=== PATIENT | male | born 1965 | race African-American/Black ===

== ENCOUNTER 2020-03-30 20:04 | Emergency (ER) | payer OTHER, SELFPAY ==
[2020-03-30 20:27] VITALS: BP 140/79; PULSE 73; RESP 16; TEMP 37.1; O2SAT 99; BMI 23.6
--- NOTE | 2020-03-30 21:10 | XR_ITS ---
EXAMINATION: XR CERVICAL SPINE XR SHOULDER, LEFT CLINICAL INFORMATION: Reticular symptoms. Question stenosis. COMPARISON: None TECHNIQUE: AP, lateral, and open-mouth views of the cervical spine. AP, Grashey, and scapular Y views of the left shoulder. FINDINGS: CERVICAL SPINE: Normal vertebral body alignment. The cervical lordosis is maintained. No acute fracture or subluxation. No loss of vertebral body height. Loss of intervertebral disc height with anterior endplate osteophytes at C6-C7. Bilateral facet arthropathy at C5-C6 and C6-C7. Normal atlantoaxial alignment. Unremarkable prevertebral soft tissues. LEFT SHOULDER: No acute fracture or dislocation. Acromioclavicular marginal osteophytes with small subacromial spurs. No glenohumeral joint space narrowing or marginal osteophytes. No osseous erosion. XR/XR shoulder LT min 2V IMPRESSION: CERVICAL SPINE: 1. Moderate degenerative disc disease at C6-C7. 2. Bilateral facet arthropathy at C5-C6 and C6-C7. LEFT SHOULDER: Mild acromioclavicular osteoarthritis with small subacromial spurs.
--- NOTE | 2020-03-30 21:10 | XR_ITS ---
EXAMINATION: XR CERVICAL SPINE XR SHOULDER, LEFT CLINICAL INFORMATION: Reticular symptoms. Question stenosis. COMPARISON: None TECHNIQUE: AP, lateral, and open-mouth views of the cervical spine. AP, Grashey, and scapular Y views of the left shoulder. FINDINGS: CERVICAL SPINE: Normal vertebral body alignment. The cervical lordosis is maintained. No acute fracture or subluxation. No loss of vertebral body height. Loss of intervertebral disc height with anterior endplate osteophytes at C6-C7. Bilateral facet arthropathy at C5-C6 and C6-C7. Normal atlantoaxial alignment. Unremarkable prevertebral soft tissues. LEFT SHOULDER: No acute fracture or dislocation. Acromioclavicular marginal osteophytes with small subacromial spurs. No glenohumeral joint space narrowing or marginal osteophytes. No osseous erosion. XR/XR cervical spine 3V IMPRESSION: CERVICAL SPINE: 1. Moderate degenerative disc disease at C6-C7. 2. Bilateral facet arthropathy at C5-C6 and C6-C7. LEFT SHOULDER: Mild acromioclavicular osteoarthritis with small subacromial spurs.
--- NOTE | 2020-03-30 21:10 | ECG_ITS ---
Test Reason : LEFT ARM PAIN Blood Pressure : / mmHG Vent. Rate : 058 BPM Atrial Rate : 058 BPM P-R Int : 204 ms QRS Dur : 096 ms QT Int : 408 ms P-R-T Axes : 021 053 045 degrees QTc Int : 400 ms Sinus bradycardia RSR' or QR pattern in V1 suggests right ventricular conduction delay Otherwise normal ECG When compared with ECG of 07-SEP-2018 21:44, No significant change was found Referred By: Jo-Ann Hampton Electronically Signed By:ISAIAH RODRIGUEZ MD
--- NOTE | 2020-03-30 21:13 | ED.EXTPRO ---
HPI - Extremity Problem General Chief complaint: Extremity Injury, Upper Stated complaint: left arm pain Time Seen by Provider: 03/30/20 21:10 Source: patient Mode of arrival: ambulatory Limitations: no limitations History of Present Illness HPI Narrative: This is a 54-year-old male who presents with 3-4 days of left shoulder discomfort on range of motion but denies any limitations. The discomfort in the left shoulder is associated with sensation paresthesias distal in all 5 fingertips without any compromise in motor function. Patient denies any trauma to the left shoulder but does state that he has known issues with his rotator cuff on both shoulders. He denies any history of diabetes or thyroid condition, shortness of breath, chest pain/palpitations, neck pain or spasm. Related Data Home Medications Medication Instructions Recorded Confirmed No Known Home Meds 02/29/20 02/29/20 Allergies Allergy/AdvReac Type Severity Reaction Status Date / Time No Known Allergies Allergy Verified 03/30/20 20:31 [No Known Allergies*] Review of Systems Review of Systems: Pertinent positives and negatives as stated in HPI and 10 point review of systems is otherwise negative. PMFSH Past Medical History Source: nursing notes reviewed Medical History Hemochromatosis carrier Hx of syphilis RCT (rotator cuff tear) Sciatica, right side Surgical History S/P foot surgery, left Family History Family History Father Diabetes Mother Diabetes Social History Social History Alcohol intake: current Alcohol intake frequency: a few times a week Alcohol type: beer Smoking Status: Current every day smoker Smoked in Last 30 Days: Yes Use of substances other than those prescribed or required for medical reasons: No Advance Directives: No Physical Exam Vital Signs: Vital Signs: Vital Signs Temp Pulse Resp BP Pulse Ox 03/30/20 20:27 98.7 F 73 16 140/79 H 99 Body Mass Index 23.6 VITAL SIGNS: Reviewed. GENERAL: Well developed, well nourished, in no acute distress. HEAD: Normocephalic/atraumatic, EYES: PERRLA, EOMI intact without pain, no nystagmus/pallor/icterus noted EARS: Ext canals without abnormality, TMs non-bulging and non-erythematous NOSE: Nares patent bilateral OROPHARYNX: no oral lesions noted, posterior pharynx clear and non-erythematous without noted tonsillar enlargement/erythema/exudates NECK: Supple, no adenopathy LUNGS: Normal breath sounds. No adventitious sounds or accessory muscle use. SpO2<99> CARDIOVASCULAR: Regular rate and rhythm without noted murmurs, no JVD or lower extremity edema. ABDOMEN: Soft, non-tender, non-distended with bowel sounds. No rigidity. No guarding. No palpable masses or hernias noted MUSCULOSKELETAL: No tenderness, deformities, or effusions noted on gross inspection. EXTREMITIES: No cyanosis, clubbing or edema; LEFT SHOULDER: There is full range of motion maintained, no evidence of deformity, no erythema, capillary refill less than 3 seconds, neurovascularly intact distal to the left shoulder, strength 5/5 on comparison with right SKIN: Inspection of the skin reveals no rashes, ulcerations, jaundice, pallor, or petechiae. NEUROLOGIC: Alert and oriented x 4. Strength and sensation to light touch were grossly intact x 4. Course Course Course Narrative: This is a 54-year-old male with history and clinical presentation consistent with possible left shoulder arthritis, but most likely radicular symptoms given numbness and tingling to all aspects of finger tips which makes isolate ulnar or radial radiculopathies unlikely. Patient does state that the sensation is exacerbated on forward flexion at the left shoulder. On review of all investigations there is no evidence of acute ischemia on EKG And on imaging there is evidence for arthritis as well as disc changes that have likely lead to patient's current presentation with numbness and tingling in the tips of the left fingers. All results and findings were discussed with the patient bedside and he was discharged to home in stable condition and strongly encouraged to follow-up with his primary care provider. IMAGING IMPRESSION: CERVICAL SPINE: 1. Moderate degenerative disc disease at C6-C7. 2. Bilateral facet arthropathy at C5-C6 and C6-C7. LEFT SHOULDER: Mild acromioclavicular osteoarthritis with small subacromial spurs. MDM - Extremity (Nontraumatic) ECG Data Attestation EKG: I personally reviewed and interpreted this ECG as follows: Prior ECG tracings: available for review ( 09/07/2018 no acute changes in comparison) Interpretation: normal sinus rhythm, HR - 58, no evidence of acute ischemia, TN prolonged at 204 (consistent with comparison ), QRS/QTC are within normal limits. Discharge Plan Discharge Clinical Impression: Cervical radiculopathy, Arthritis of shoulder region, left Patient Disposition: Home, Self-Care Instructions: Osteoarthritis (ED), Cervical Radiculopathy (ED) Additional Instructions: 1. Tylenol 1000 mg, orally, every 6 hours as needed for pain control please do not exceed 4000 mg within 24 hours. 2. ibuprofen 400 mg, orally with milk or food, every 6 hours as needed for additional pain control. 3. consider lidocaine patches, these are available [id number] at every [email or web address], apply to the area discomfort as directed on the outside packaging. 4. please follow-up with your primary care provider in the next 2 days to establish a follow-up appointment. The patient and/or family acknowledge understanding of results (as applicable), diagnosis, treatment plan, need for follow up, and symptoms that should prompt a return to the emergency room. Referrals: Physician,Unknown [Primary Care Provider] - 2 days (Shoulder discomfort and cervical radiculopathy)
[2020-03-30] MEDS: Ketorolac Tromethamine 15 MG/ML VIAL IM (21:40)
[2020-03-30] MEDS: Acetaminophen 325 MG TABLET 975 MG PO (21:40)
[2020-03-30 22:14] VITALS: BP 115/70; PULSE 62; RESP 18; TEMP 36.8; O2SAT 98
== END 2020-03-30 22:22 | disposition home or self-care (01) ==
PROVIDERS: Emergency Provider Student in an Organized Health Care Education/Training Program
DX: M54.12 Radiculopathy, cervical region (principal); M13.812 Other specified arthritis, left shoulder; M25.512 Pain in left shoulder; F17.200 Nicotine dependence, unspecified, uncomplicated; Z71.6 Tobacco abuse counseling
CPT/HCPCS: 72040; 73030; 93005; 96372; 99284; J1885

== ENCOUNTER 2020-05-03 11:56 | Outpatient (REF) | payer OTHER, SELFPAY | END 2020-05-03 11:57 | disposition home or self-care (01) | LOC: HO.LAB 11:56 | PROVIDERS: Visit Provider Internal Medicine | DX: Z20.828 Contact with and (suspected) exposure to other viral communicable diseases (principal) | CPT/HCPCS: C9803; U0003 ==

== ENCOUNTER 2020-09-07 01:41 | Emergency (ER) | payer OTHER, SELFPAY ==
[2020-09-07 01:45] VITALS: BP 126/85; PULSE 73; RESP 18; TEMP 36.8; O2SAT 98; BMI 25.8
--- NOTE | 2020-09-07 03:56 | ED_ITS ---
HPI - Eye Problem General Chief complaint: Eye Problems Stated complaint: EYE PROBLEMS Time Seen by Provider: 09/07/20 03:55 Source: patient Mode of arrival: ambulatory History of Present Illness HPI Narrative: 55-year-old male who who presents with complaints of bilateral eye watering, clear in nature, this started after he took a nap and he initially thought that it was due to the chicken and hot sauce that he had eaten. 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 He states that this happens sometimes and he had completely forgotten about it. Patient now states that he has had almost complete resolution of his blurred vision. He denies any eye trauma, or purulence drainage. Related Data Home Medications Medication Instructions Recorded Confirmed No Known Home Meds 02/29/20 02/29/20 Allergies Allergy/AdvReac Type Severity Reaction Status Date / Time No Known Allergies Allergy Verified 03/30/20 20:31 [No Known Allergies*] Review of Systems Review of Systems: Pertinent positives and negatives as stated in the HPI and 10 point review of systems is otherwise negative. PMFSH Past Medical History Medical History Hemochromatosis carrier Hx of syphilis RCT (rotator cuff tear) Sciatica, right side Surgical History S/P foot surgery, left Family History Family History Father Diabetes Mother Diabetes Social History Social History Alcohol intake: current Alcohol intake frequency: a few times a week Alcohol type: beer Smoking Status: Current every day smoker Advance Directives: No Advance Directives Information Provided: No Physical Exam Vital Signs: Vital Signs: Last Vital Signs Temp 98.2 F 09/07/20 01:45 Pulse 73 09/07/20 01:45 Resp 18 09/07/20 01:45 BP 126/85 09/07/20 01:45 Pulse Ox 98 09/07/20 01:45 Body Mass Index 25.8 VITAL SIGNS: Reviewed. GENERAL: Well developed, well nourished, in no acute distress. HEAD: Normocephalic/atraumatic, EYES: PERRLA, EOMI intact without pain, watery tearing noted from bilateral eyes without conjunctival injection. Visual acuity was obtained and noted to be 20/25 in bilateral eyes NOSE: Nares patent bilateral OROPHARYNX: no oral lesions noted, posterior pharynx clear NECK: Supple, no adenopathy LUNGS: Normal breath sounds. No adventitious sounds or accessory muscle use. SpO2<98> CARDIOVASCULAR: Regular rate and rhythm without noted murmurs ABDOMEN: Soft, non-tender, non-distended with bowel sounds. NEUROLOGIC: Alert and oriented x 4. Course Course Course Narrative: 55-year-old male with history and clinical presentation consistent with welding arc flash exposure and at time that I evaluated the patient in had almost complete resolution his symptoms. His visual acuity is noted to be consistent with his eye exam from 3 days ago where patient stated he was found to be 20/20 and each of his eyes at that time. Patient states the burning has improved and he was discharged home in stable condition with recommendations for [id number] eyedrops as well as the use of Tylenol and/or [id number] ibuprofen as needed for symptom relief. He was also enc ouraged to follow with an eye doctor for re-evaluation. Discharge Plan Discharge Clinical Impression: Exposure to welding light (arc), initial encounter Patient Disposition: Home, Self-Care Additional Instructions: 1. Tylenol 1000 mg, por v?a oral, cada 6 horas seg?n sea necesario para controlar el dolor. No exceda los 4000 mg en 24 horas. 2. Ibuprofeno 400 mg, por v?a oral con leche o alimentos, cada 6 horas seg?n sea necesario para controlar el dolor. 3. Recomendar gotas para los ojos de venta kenyatta que se deben aplicar en ambos ojos alis se indica en las instrucciones. 4. Recomiende no volver a soldar hasta que los s?ntomas oculares se hayan resuelto. 5. Helene un seguimiento con whelan proveedor de atenci?n primaria dentro de los pr?ximos 2-3 d?as para misha reevaluaci?n. No dude en volver al servicio de urgencias por cualquier empeoramiento dat de gisell s?ntomas. Referrals: Physician,Unknown [Primary Care Provider] - 2 days Interventions: ED Discharge Assessment Last Done: 09/07/20 05:31 Discharge Date/Time: 09/07/20 05:31 Print Language: [place]
== END 2020-09-07 05:31 | disposition home or self-care (01) ==
PROVIDERS: Emergency Provider Student in an Organized Health Care Education/Training Program
DX: H16.133 Photokeratitis, bilateral (principal); F17.200 Nicotine dependence, unspecified, uncomplicated
CPT/HCPCS: 99282; 99284

== ENCOUNTER 2021-04-10 08:56 | Outpatient (REF) | payer OTHER, SELFPAY ==
[2021-04-10 10:13] LABS: Hematocrit 45.5 % (42.0-52.0); Hemoglobin 14.6 g/dl (14.0-18.0); Mean Corpuscular HGB Conc 32.1 g/dl (31.0-36.0); Mean Corpuscular Hemoglobin 28.6 pg (27.0-33.0); Mean Platelet Volume 9.8 fL (9.4-12.4); Platelet Count 310 X10*3/uL (160-400); Red Blood Count 5.11 X10*6/uL (4.60-5.80); Red Cell Distribution Width 14.1 % (11.0-16.0)
[2021-04-10 10:22] LABS: Estimated Average Glucose 111 mg/dL; Hemoglobin A1c % 5.5 %
[2021-04-10 10:53] LABS: Alanine Aminotransferase 18 U/L (0-40); Alkaline Phosphatase 76 U/L (39-117); Anion Gap 10 (12-20); Aspartate Amino Transferase 19 U/L (5-37); Bilirubin Total 0.3 mg/dL (0.0-1.0); Blood Urea Nitrogen 17 mg/dL (9-16); Calcium 9.3 mg/dL (8.4-10.2); Carbon Dioxide 29 mmol/L (22-29); Chloride 105 mmol/L (96-108); Cholesterol 190 mg/dL; Estimated Glomerular Filt Rate > 60; Glucose Fasting 92 mg/dL (60-99); HDL Cholesterol 53 mg/dL; LDL Cholesterol Calculated 121 mg/dl; Potassium 5.2 mmol/L (3.3-5.1); Sodium 139 mmol/L (135-145); Total Protein 6.8 g/dL (6.5-8.0); Triglycerides 84 mg/dL
[2021-04-10 11:02] LABS: Prostate Specific Antigen Scr 1.21 ng/mL (<0.05-4.0); TSH reflex Free T4 1.13 uIU/mL (0.32-4.0)
== END 2021-04-10 08:57 | disposition home or self-care (01) ==
LOC: HO.LAB 08:56
PROVIDERS: PCP Physician Assistant; Visit Provider Physician Assistant
DX: Z13.29 Encounter for screening for other suspected endocrine disorder (principal); Z12.5 Encounter for screening for malignant neoplasm of prostate; Z13.1 Encounter for screening for diabetes mellitus; Z13.220 Encounter for screening for lipoid disorders
CPT/HCPCS: 36415; 80053; 80061; 83036; 84153; 84443; 85027

== ENCOUNTER 2021-04-22 10:11 | Outpatient (REF) | payer OTHER, SELFPAY ==
--- NOTE | ~2021-04-22 | US_ITS ---
EXAMINATION: US ABDOMEN COMPLETE CLINICAL INFORMATION: Left lower quadrant pain. COMPARISON: None TECHNIQUE: Real-time imaging of the abdominal viscera. FINDINGS: PANCREAS: Partially visualized body the pancreas is homogeneous in echotexture. Rest the pancreas is obscured by gas. ABDOMINAL AORTA: The proximal, mid, and distal segments are normal in caliber. INFERIOR VENA CAVA: Visualized portions are normal. LIVER: Normal. The liver is normal in size. The liver contour is normal. Parenchymal echogenicity is normal. No focal hepatic lesion. There is no intrahepatic biliary duct dilatation seen. GALLBLADDER: The gallbladder is physiologically distended without evidence of stones, sludge, wall thickening or pericholecystic fluid. There is a nonmobile small echogenic polyp. COMMON BILE DUCT: Normal in caliber measuring 0.34 cm in diameter. RIGHT KIDNEY: Normal. No hydronephrosis. No renal calculi or focal parenchymal lesions. The kidney measures 10.7 cm in maximum dimension. LEFT KIDNEY: Normal. No hydronephrosis. No renal calculi or focal parenchymal lesions. The kidney measures 9.6 cm in maximum dimension. SPLEEN: Normal. The spleen measures 7.5 cm in maximum dimension. FREE FLUID: None. US/US abdomen complete IMPRESSION: Small nonmobile echogenic polyp. Rest of the abdominal ultrasound is unremarkable.
== END 2021-04-22 10:12 | disposition home or self-care (01) ==
LOC: HO.HMGCX 10:11
PROVIDERS: PCP Physician Assistant; Visit Provider Physician Assistant
DX: R10.32 Left lower quadrant pain (principal)
CPT/HCPCS: 76700

== ENCOUNTER 2021-06-08 23:09 | Emergency (ER) | payer OTHER, SELFPAY ==
[2021-06-08 23:40] VITALS: BP 116/77; PULSE 79; RESP 16; TEMP 36.4; O2SAT 97; BMI 25.0
== END 2021-06-09 01:26 | disposition left against medical advice (07) ==
PROVIDERS: Emergency Provider Emergency Medicine; PCP Physician Assistant
DX: R51.9 Headache, unspecified (principal)
CPT/HCPCS: 99281; 99282

== ENCOUNTER 2021-06-19 09:34 | Outpatient (REF) | payer OTHER, SELFPAY ==
[2021-06-19 11:28] LABS: HBc Num1 0.05 S/CO (0.00-0.79); HBsAGNum1 0.26 S/CO (0.00-0.99); HIV AB/AG Nonreactive (Nonreactive); HIV Num 1 0.11 S/CO (0.00-0.99); Hepatitis B Core Antibody Nonreactive (Nonreactive); Hepatitis B Surface Antigen Negative (Negative); ~HepC Num1 0.09 S/CO (0.00-0.79); ~Hepatitis B Surface Antibody NONREACTIVE (Nonreactive); ~Hepatitis C Antibody Nonreactive (Nonreactive)
[2021-06-19 11:31] LABS: Anion Gap 12 (12-20); Blood Urea Nitrogen 14 mg/dL (9-16); Calcium 9.4 mg/dL (8.4-10.2); Carbon Dioxide 28 mmol/L (22-29); Chloride 108 mmol/L (96-108); Estimated Glomerular Filt Rate > 60; Glucose Random 99 mg/dL (60-115); Potassium 4.7 mmol/L (3.3-5.1); Sodium 143 mmol/L (135-145)
[2021-06-20 08:19] LABS: Syphilis Screen Reactive (Nonreactive)
[2021-06-24 17:01] LABS: Chlamydia Pneumoniae IgA <1:16 titer (<1:16); Chlamydia Pneumoniae IgG <1:64 titer (<1:64); Chlamydia Pneumoniae IgM <1:10 titer (<1:10); Chlamydia Psittaci IgA <1:16 titer (<1:16); Chlamydia Psittaci IgG <1:64 titer (<1:64); Chlamydia Psittaci IgM <1:10 titer (<1:10); Chlamydia Trachomatis IgA <1:16 titer (<1:16); Chlamydia Trachomatis IgG <1:64 titer (<1:64); Chlamydia Trachomatis IgM <1:10 titer (<1:10)
[2021-06-26 15:21] LABS: RPR Quantitative Non-Reactive (Nonreactive); T.Pallidum Particle Agg Test Reactive (Nonreactive)
== END 2021-06-19 09:35 | disposition home or self-care (01) ==
LOC: HO.LAB 09:34
PROVIDERS: PCP Physician Assistant; Visit Provider Physician Assistant
DX: Z01.84 Encounter for antibody response examination (principal); Z11.3 Encounter for screening for infections with a predominantly sexual mode of transmission; Z11.4 Encounter for screening for human immunodeficiency virus [HIV]; H53.8 Other visual disturbances
CPT/HCPCS: 36415; 80048; 86592; 86631; 86632; 86704; 86706; 86780; 86803; 87340; 87389

== ENCOUNTER 2021-06-24 16:00 | Emergency (ER) | payer OTHER, SELFPAY ==
--- NOTE | ~2021-06-24 | CT_ITS ---
EXAMINATION: CT ANGIOGRAM HEAD CT ANGIOGRAM NECK CT ORBITS WITH CONTRAST CLINICAL INFORMATION: Blurry vision. COMPARISON: None available. TECHNIQUE: Initial noncontrast mining plant operator imaging of the head and neck was performed. Test bolus sequences followed by intravenous administration 140 mL of Omnipaque 350. Helical imaging was performed in the axial plane from the aortic arch to the skull vertex. Postcontrast CT of the orbits was obtained. Delayed postcontrast imaging of the head was also performed. The data was processed at the environmental health technologist's workstation for generation of MIP sequences. Angled MIPs and volume rendered reformatted images were also generated at an offline 3D workstation. Stenoses are assessed in accordance with NASCET criteria unless otherwise indicated. This CT examination was performed using dose optimization techniques as appropriate, variously including the following: *Automated exposure control. *Adjustment of mA and/or kV according to patient size (this includes techniques or standardized protocols for targeted exams where dose is matched to indication/reason for exam; i.e. extremities or head). *Use of iterative reconstruction technique. DLP: 4535 mGy-cm FINDINGS: CT Head: There is no evidence of acute intracranial hemorrhage or edematous territorial infarction. There is no abnormal attenuation within the brain parenchyma. Kate-white matter differentiation is preserved. The ventricles are normal in size and configuration. No evidence for obstructive hydrocephalus. No abnormal mass effect or midline shift. The suprasellar cistern remains widely patent. No extra-axial fluid collections. No pathologic intra-axial enhancement. No acute soft tissue or osseous abnormalities. Moderate polypoid mucosal thickening of the paranasal sinuses. Moderate rightward nasal septal deviation. Trace bilateral mastoid effusions. Mild degenerative arthropathy of the temporomandibular joints. Multifocal periapical lucencies associated with the mandibular and maxillary teeth. CT Orbits: Normal appearance of the osseous orbits. No significant preseptal or retrobulbar edema. Normal appearance of the globes. Normal symmetric appearance of the extraocular musculature. No abnormalities of the intraconal or extraconal adipose tissue. Normal appearance of the optic nerve sheaths. Normal appearance of the lacrimal glands. No orbital fluid collections. No abnormalities of the orbital apices. No abnormal enhancement of the orbits. The premaxillary, retromaxillary, pterygopalatine fossa, temporal fossa, and parapharyngeal adipose tissue is maintained. No demonstrated abnormalities of the cavernous sinuses. No demonstrated vascular abnormalities. CT Neck: The thyroid gland and remaining cervical soft tissues are within normal limits. Advanced degenerative disc disease at C6-C7. Moderate degenerative disc disease at C3-C4. Associated disc-osteophyte complex formation. Facet and uncovertebral joint arthropathy leads to osseous encroachment on the neural foramina at C3-C4 and C6-C7. CT Upper Chest: Mild to moderate centrilobular emphysema. The visualized lung apices and upper mediastinum are within normal limits. Neck CTA: Aortic Arch: Normal contour and caliber. Classic 3 vessel branching pattern of the aortic arch. Great Vessel Origins: No significant stenosis of the branch origins. Right Common Carotid Artery: No focal stenosis or occlusion. Cervical Right Internal Carotid Artery: Normal opacification without focal stenosis or occlusion. Left Common Carotid Artery: No focal stenosis or occlusion. Cervical Left Internal Carotid Artery: Normal opacification without focal stenosis or occlusion. Cervical Right Vertebral Artery: Co-dominant. No focal stenosis or occlusion. Cervical Left Vertebral Artery: Co-dominant. No focal stenosis or occlusion. Brain CTA: Intracranial Internal Carotid Arteries: No focal stenosis or occlusion. Normal opacification of the bilateral ophthalmic arteries. Right Anterior Cerebral Artery: Normal A1 segment. Normal opacification of the distal JAMAAL segments. Left Anterior Cerebral Artery: Normal A1 segment. Normal opacification of the distal JAMAAL segments. Anterior Communicating Artery: Normal. Right Middle Cerebral Artery: Normal M1 segment of the MCA without focal stenosis or occlusion. Normal arborization of the distal segments. Left Middle Cerebral Artery: Normal M1 segment of the MCA without focal stenosis or occlusion. Normal arborization of the distal segments. Right Vertebral Artery: Normal V4 segment. The posterior inferior cerebellar artery is not well opacified; however, there is no CT evidence of acute occlusion. Left Vertebral Artery: Normal V4 segment. Normal opacification of the proximal segments of the posterior inferior cerebellar artery. Basilar Artery: Normal without focal stenosis or occlusion. Normal appearance of the proximal superior cerebellar arteries. Right Posterior Cerebral Artery: Normal P1 segment. Normal opacification of the distal WAREHOUSE SUPERVISOR segments. Left Posterior Cerebral Artery: Normal P1 segment. Normal opacification of the distal WAREHOUSE SUPERVISOR segments. Normal opacification of the superior sagittal, straight, transverse, and sigmoid sinuses. CT/CT angio head neck IMPRESSION: 1. No evidence of acute intracranial hemorrhage or edematous territorial infarction. 2. CTA of the head and neck without proximal occlusion or flow-limiting stenosis. 3. Normal CT evaluation of the orbits. 4. Moderate multilevel degenerative spinal arthropathy of the cervical spine. 5. Emphysema.
[2021-06-24 16:04] VITALS: BP 146/74; PULSE 86; RESP 18; TEMP 37.2; O2SAT 97; BMI 25.0
--- NOTE | 2021-06-24 18:41 | ED_ITS ---
HPI - General Adult General Chief complaint: Eye Problems Stated complaint: blurred vision Time Seen by Provider: 06/24/21 17:57 Source: patient Mode of arrival: ambulatory Limitations: no limitations History of Present Illness HPI narrative: 55-year-old male presents with an episode where both of his eyes went black and could not see for approximately 5 minutes. States that his vision returned and had blurriness to both eyes. Onset (ago): hour(s) (1:30 p.m.) Location: head and face Radiation: non-radiation Severity: severe and similar to prior episodes Relieving factors: none Exacerbating factors: none Associated symptoms: denies other symptoms Treatments prior to arrival: none Related Data Home Medications Medication Instructions Recorded Confirmed No Known Home Meds 02/29/20 06/10/21 Allergies Allergy/AdvReac Type Severity Reaction Status Date / Time No Known Allergies Allergy Verified 06/24/21 16:04 [No Known Allergies*] Review of Systems Verdana 4l Review of Systems: Verdana 4d Verdana 4d Constitutional: No Weight loss, No Fever, No Chills, No Night Sweats, No Fatigue, No Malaise ENT/Mouth: No Hearing loss, No Ear Pain, No Nasal Congestion, No Sinus Pain, No Hoarseness, No sore throat, No Rhinorrhea, No Swallowing DifficultyDifficulty Eyes: Transient loss of vision, No Eye Pain, No Swelling, No Redness, No Foreign Body, No Discharge, positive Vision Changes Cardiovascular: No Chest Pain, No SOB, No Dyspnea on Exertion, No Orthopnea, No Edema, No Palpitations Respiratory: No Cough, No Sputum, No Wheezing, No Smoke Exposure, No Dyspnea Gastrointestinal: No Nausea, No Vomiting, No Diarrhea, No Constipation, No abdominal Pain, No Hematochezia, No Melena Genitourinary: no irregular bleeding, No Dysuria, No Urinary Frequency, No He maturia, No Urinary Incontinence, No Urgency, No Flank Pain, No Urinary Flow Changes, No Hesitancy Musculoskeletal: No joint pain, No Myalgias, No Joint Swelling Skin: No Skin Lesions, No rash Neuro: No Weakness, No Numbness, No Paresthesias, No Loss of Consciousness, No Dizziness, No Headache Psych: No Anxiety/Panic, No Depression, No SI/HI/AH/VH, No Social Issues Heme/Lymph: No Bruising, No Bleeding,No Lymphadenopathy Endocrine: No Polyuria, No Polydipsia, No Temperature Intolerance Yes all other systems are reviewed and are negative [facility] Past Medical History Attestation statement: The following information was validated with the patient. Source: old records reviewed Medical History Hemochromatosis carrier Hx of syphilis RCT (rotator cuff tear) Sciatica, right side Surgical History S/P foot surgery, left Family History Family History Father Diabetes Colon cancer, Onset Age: 73 Mother Diabetes Social History Social History Housing: Apartment Alcohol intake: current Alcohol intake frequency: a few times a week Alcohol type: beer Patient Tobacco Use Status: Current everyday Tobacco user Tobacco use type: Cigarette Cigarette Packs Per Day: 1 e-Cigarette/Vaping Use: Never Used Second Hand Smoke Exposure: No Advance Directives: No Advance Directives Information Provided: No Current occupational status: unemployed and disabled Physical Exam Verdana 4l Vital Signs: Verdana 4d Verdana 4d Vital Signs: Verdana 4d Verdana 4Bd Last Vital Signs Verdana 4d Tanbark Peeler New 4d Tanbark Peeler New 4d Temp 98.9 F 06/24/21 16:04 Tanbark Peeler New 4d Pulse 77 06/24/21 19:03 Tanbark Peeler NewNew 4d Resp 16 06/24/21 19:03 BP 127/65 06/24/21 19:03 Pulse Ox 99 06/24/21 19:03 BMI result Body Mass Index 25.0 Appearance: Alert. Oriented X3. No acute distress. Head: Normal external exam. Normocephalic. Atraumatic. No Gaffney signs noted. No raccoon eyes noted Eyes: PERRLA. EOMI. Conjunctiva and sclera normal. Eyelids normal. No nyst agmus. No scleral icterus. Funduscopic exam is normal. ENT: TM's Normal. Pharynx normal. Uvula midline. Moist mucous membranes. No trismus noted. No drooling noted. No muffled voice noted. Neck: Normal inspection. Neck supple. No adenopathy. No meningeal signs. No neck mass noted. CVS: Normal heart rate and rhythm. Heart sound normal. No murmurs noted. Pulses equal to all extremities. Respiratory: No respiratory distress. Painless inspiration. Breath sounds normal. No wheezes/rales/rhonchi noted. Chest nontender. No accessory muscle usage noted or decreased air movement noted. Abdomen: Soft and nontender. Bowel sounds normal in all 4 quadrants. No distention noted. No organomegaly noted. No visible injury noted. Back: No CVA tenderness. Full range of motion noted. Skin: Skin warm and dry. Normal skin color. Normal skin turgor. No rashes/lesions/lacerations noted. Extremities: No lower extremity edema. Extremities exhibit normal range of motion. Extremities nontender. Neuro: cranial nerves 2-12 intact, no focal neural deficits, strength 5/5 to all extremities, No motor deficit. No sensory deficit. NIH Stroke Scale Internal: Initial- Upon Arrival Level of Consciousness: Alert Level of Consciousness Questions: Answers both questions correctly Level of Consciousness Commands: Performs both tasks correctly Best Gaze: Normal Visual: No visual loss Facial Palsy: Normal Motor Arm (Right): No drift Motor Arm (Left): No drift Motor Leg (Right): No drift Motor Leg (Left): No drift Limb Ataxia: Absent Sensory: Normal Best Language: No aphasia Dysarthia: Normal Extinction and Inattention: No abnormality Score: 0 Course Course Course Narrative: 55-year-old male presents with transient loss of vision that occurred around 1:30 p.m. today. Once his vision gained approximately 5 minutes after loss of vision, he noted to have bilateral blurriness. Does not report any other symptoms with this transient loss of vision. States that this has happened before approximately 1 month ago and last week. He did present to the emergency department last week however the wait time was too long for him to wait. Will order labs, EKG, CTA of head neck. NIH stroke scale is 0. While stroke is considered based on presentation, he has had similar circumstances over the past month. 7:30 p.m. lab values are negative. Glucose elevated at 121. ESR and CRP are negative. Troponin is negative. EKG is consistent with prior EKGs no indication of ST elevation or depression. 9:50 p.m. CTA negative. Does show some spinal degeneration and emphysema. Patient does have primary care physician appointment tomorrow. Will refer to luncheonette operator. Patient verbalized understanding of and agrees to plan of care to discharge home Medical Decision Making MDM Narrative Medical decision making narrative: CVA, retinal detachment, hypertension, diabetes Medical Records Medical records reviewed: Yes I reviewed the patient's medical records. Lab Data Lab results reviewed: Yes I reviewed the patient's lab results. Result diagrams: 06/24/21 18:55 06/24/21 18:55 Labs: Lab Results 06/24/21 06/24/21 06/24/21 Range/Units 18:55 18:55 18:55 WBC 8.8 (4.8-10.8) X10*3/uL RBC 4.91 (4.60-5.80) X10*6/uL Hgb 14.4 (14.0-18.0) g/dl Hct 43.3 (42.0-52.0) % MCV 88.2 (80.0-98.0) fL MCH 29.3 (27.0-33.0) pg MCHC 33.3 (31.0-36.0) g/dl RDW 14.0 (11.0-16.0) % Plt Count 322 (160-400) X10*3/uL MPV 9.2 L (9.4-12.4) fL Immature Gran % (Auto) 0.5 H (0.0-0.4) % Neut % (Auto) 69.2 (45-73) % Lymph % (Auto) 22.6 (20-40) % Cheyenne % (Auto) 6.0 (2-11) % Eos % (Auto) 1.4 (0-4) % Baso % (Auto) 0.3 (0-2) % Lymph # (Auto) 2.0 (1.2-4.9) X10*3/uL [place] # (Auto) 0.5 (0.1-1.2) X10*3/uL Eos # (Auto) 0.1 (0.0-0.4) X10*3/uL Baso # (Auto) 0.0 (0.0-0.2) X10*3/uL Abs Immat Gran (auto) 0.04 H (0.00-0.03) X10*3/uL Absolute Neuts (auto) 6.1 (2.0-8.3) x10*3/uL Absolute Nucleated RBC 0.000 (0.0-0.012) X10*3/uL Nucleated RBC % (auto) 0.0 (0.0-0.2) /100WBC ESR 12 (0-15) MM/HR PT (9.9-13.0) SEC INR (0.9-1.1) APTT (24.1-38.0) SEC Sodium 143 (135-145) mmol/L Potassium 3.7 D (3.3-5.1) mmol/L Chloride 104 (96-108) mmol/L Carbon Dioxide 30 H (22-29) mmol/L Anion Gap 13 (12-20) BUN 14 (9-16) mg/dL Creatinine 0.95 (0.5-1.4) mg/dL Estim Creat Clear Calc 90.7 Estimated GFR > 60 Random Glucose 121 H (60-115) mg/dL Calcium 9.7 (8.4-10.2) mg/dL Magnesium 2.5 (1.6-2.6) mg/dL Total Bilirubin 0.4 (0.0-1.0) mg/dL Direct Bilirubin 0.2 (0.0-0.5) mg/dL AST 18 (5-37) U/L ALT 16 (0-40) U/L Alkaline Phosphatase 74 (39-117) U/L Troponin I High Sens (<3.5-35.0) ng/L C-Reactive Protein 0.09 (< or = 0.50) mg/dL Total Protein 7.4 (6.5-8.0) g/dL Albumin 4.1 (3.5-5.0) g/dL Lipase 21 (8-78) U/L 06/24/21 06/24/21 Range/Units 18:55 18:55 WBC (4.8-10.8) X10*3/uL RBC (4.60-5.80) X10*6/uL Hgb (14.0-18.0) g/dl Hct (42.0-52.0) % MCV (80.0-98.0) fL MCH (27.0-33.0) pg MCHC (31.0-36.0) g/dl RDW (11.0-16.0) % Plt Count (160-400) X10*3/uL MPV (9.4-12.4) fL Immature Gran % (Auto) (0.0-0.4) % Neut % (Auto) (45-73) % Lymph % (Auto) (20-40) % [place] % (Auto) (2-11) % Eos % (Auto) (0-4) % Baso % (Auto) (0-2) % Lymph # (Auto) (1.2-4.9) X10*3/uL [place] # (Auto) (0.1-1.2) X10*3/uL Eos # (Auto) (0.0-0.4) X10*3/uL Baso # (Auto) (0.0-0.2) X10*3/uL Abs Immat Gran (auto) (0.00-0.03) X10*3/uL Absolute Neuts (auto) (2.0-8.3) x10*3/uL Absolute Nucleated RBC (0.0-0.012) X10*3/uL Nucleated RBC % (auto) (0.0-0.2) /100WBC ESR (0-15) MM/HR PT 11.6 (9.9-13.0) SEC INR 1.0 (0.9-1.1) APTT 37.5 (24.1-38.0) SEC Sodium (135-145) mmol/L Potassium (3.3-5.1) mmol/L Chloride (96-108) mmol/L Carbon Dioxide (22-29) mmol/L Anion Gap (12-20) BUN (9-16) mg/dL Creatinine (0.5-1.4) mg/dL Estim Creat Clear Calc Estimated GFR Random Glucose (60-115) mg/dL Calcium (8.4-10.2) mg/dL Magnesium (1.6-2.6) mg/dL Total Bilirubin (0.0-1.0) mg/dL Direct Bilirubin (0.0-0.5) mg/dL AST (5-37) U/L ALT (0-40) U/L Alkaline Phosphatase (39-117) U/L Troponin I High Sens < 3.5 (<3.5-35.0) ng/L C-Reactive Protein (< or = 0.50) mg/dL Total Protein (6.5-8.0) g/dL Albumin (3.5-5.0) g/dL Lipase (8-78) U/L Imaging Data CTA head neck: Attestation: I personally reviewed and interpreted this imaging study as follows: Radiologist's impression: EXAMINATION: CT ANGIOGRAM HEAD CT ANGIOGRAM NECK CT ORBITS WITH CONTRAST CLINICAL INFORMATION: Blurry vision. COMPARISON: None available. TECHNIQUE: Initial noncontrast bladder trimmer imaging of the head and neck was performed. Test bolus sequences followed by intravenous administration 140 mL of Omnipaque 350. Helical imaging was performed in the axial plane from the aortic arch to the skull vertex. Postcontrast CT of the orbits was obtained. Delayed postcontrast imaging of the head was also performed. The data was processed at the medical laboratory technologist's workstation for generation of MIP sequences. Angled MIPs and volume rendered reformatted images were also generated at an offline 3D workstation. Stenoses are assessed in accordance with NASCET criteria unless otherwise indicated. This CT examination was performed using dose optimization techniques as appropriate, variously including the following: *Automated exposure control. *Adjustment of mA and/or kV according to patient size (this includes techniques or standardized protocols for targeted exams where dose is matched to indication/reason for exam; i.e. extremities or head). *Use of iterative reconstruction technique. DLP: 4535 mGy-cm FINDINGS: CT Head: There is no evidence of acute intracranial hemorrhage or edematous territorial infarction. There is no abnormal attenuation within the brain parenchyma. Kate-white matter differentiation is preserved. The ventricles are normal in size and configuration. No evidence for obstructive hydrocephalus. No abnormal mass effect or midline shift. The suprasellar cistern remains widely patent. No extra-axial fluid collections. No pathologic intra-axial enhancement. No acute soft tissue or osseous abnormalities. Moderate polypoid mucosal thickening of the paranasal sinuses. Moderate rightward nasal septal deviation. Trace bilateral mastoid effusions. Mild degenerative arthropathy of the temporomandibular joints. Multifocal periapical lucencies associated with the mandibular and maxillary teeth. CT Orbits: Normal appearance of the osseous orbits. No significant preseptal or retrobulbar edema. Normal appearance of the globes. Normal symmetric appearance of the extraocular musculature. No abnormalities of the intraconal or extraconal adipose tissue. Normal appearance of the optic nerve sheaths. Normal appearance of the lacrimal glands. No orbital fluid collections. No abnormalities of the orbital apices. No abnormal enhancement of the orbits. The premaxillary, retromaxillary, pterygopalatine fossa, temporal fossa, and parapharyngeal adipose tissue is maintained. No demonstrated abnormalities of the cavernous sinuses. No demonstrated vascular abnormalities. CT Neck: The thyroid gland and remaining cervical soft tissues are within normal limits. Advanced degenerative disc disease at C6-C7. Moderate degenerative disc disease at C3-C4. Associated disc-osteophyte complex formation. Facet and uncovertebral joint arthropathy leads to osseous encroachment on the neural foramina at C3-C4 and C6-C7. CT Upper Chest: Mild to moderate centrilobular emphysema. The visualized lung apices and upper mediastinum are within normal limits. Neck CTA: Aortic Arch: Normal contour and caliber. Classic 3 vessel branching pattern of the aortic arch. Great Vessel Origins: No significant stenosis of the branch origins. Right Common Carotid Artery: No focal stenosis or occlusion. Cervical Right Internal Carotid Artery: Normal opacification without focal stenosis or occlusion. Left Common Carotid Artery: No focal stenosis or occlusion. Cervical Left Internal Carotid Artery: Normal opacification without focal stenosis or occlusion. Cervical Right Vertebral Artery: Co-dominant. No focal stenosis or occlusion. Cervical Left Vertebral Artery: Co-dominant. No focal stenosis or occlusion. Brain CTA: Intracranial Internal Carotid Arteries: No focal stenosis or occlusion. Normal opacification of the bilateral ophthalmic arteries. Right Anterior Cerebral Artery: Normal A1 segment. Normal opacification of the distal JAMAAL segments. Left Anterior Cerebral Artery: Normal A1 segment. Normal opacification of the distal JAMAAL segments. Anterior Communicating Artery: Normal. Right Middle Cerebral Artery: Normal M1 segment of the MCA without focal stenosis or occlusion. Normal arborization of the distal segments. Left Middle Cerebral Artery: Normal M1 segment of the MCA without focal stenosis or occlusion. Normal arborization of the distal segments. Right Vertebral Artery: Normal V4 segment. The posterior inferior cerebellar artery is not well opacified; however, there is no CT evidence of acute occlusion. Left Vertebral Artery: Normal V4 segment. Normal opacification of the proximal segments of the posterior inferior cerebellar artery. Basilar Artery: Normal without focal stenosis or occlusion. Normal appearance of the proximal superior cerebellar arteries. Right Posterior Cerebral Artery: Normal P1 segment. Normal opacification of the distal SUPERVISOR BLUEPRINTING AND PHOTOCOPY segments. Left Posterior Cerebral Artery: Normal P1 segment. Normal opacification of the distal SUPERVISOR BLUEPRINTING AND PHOTOCOPY segments. Normal opacification of the superior sagittal, straight, transverse, and sigmoid sinuses. CT/CT angio head neck IMPRESSION: 1. No evidence of acute intracranial hemorrhage or edematous territorial infarction. 2. CTA of the head and neck without proximal occlusion or flow-limiting stenosis. 3. Normal CT evaluation of the orbits. 4. Moderate multilevel degenerative spinal arthropathy of the cervical spine. 5. Emphysema. ECG Data Attestation: I personally reviewed and interpreted this ECG as follows: Prior ECG tracings: available for review Interpretation: Vent. rate 76 BPM LA interval 230 ms QRS duration 108 ms QT/QTc 384/432 ms P-R-T axes 64 55 42 Sinus rhythm with 1st degree A-V block Otherwise normal ECG When compared with ECG of 30-MAR-2020 20:48, No significant change was found 24-JUN-2021 18:58:15 Discharge Plan Discharge Clinical Impression: Changes in vision Patient Disposition: Home, Self-Care Instructions: Blurred Vision (ED) Additional Instructions: You were evaluated for transient vision loss without any other symptoms. CTA of head and neck with orbit is negative for acute findings requiring intervention. CTA does indicate emphysema in the lungs. Please follow-up with your primary care physician as scheduled tomorrow. Follow-up with Ophthalmology. Your lab values were within normal limits with the exception of your glucose which was elevated 121. Please follow-up with primary care for A1c. Your troponin was negative and EKG did not show any changes indicating ST elevation or depression. Thank you for choosing this emergency department for evaluation. Please fol low-up with primary care physician as needed. Return to the emergency department for any new, concerning, or worsening symptoms. Prescriptions: No Action No Known Home Meds RF: 0 Referrals: Urban Coffey [Physician] - 2 days (Transient vision changes)
--- NOTE | 2021-06-24 18:42 | ECG_ITS ---
Test Reason : Blurred vision Blood Pressure : / mmHG Vent. Rate : 076 BPM Atrial Rate : 076 BPM P-R Int : 230 ms QRS Dur : 108 ms QT Int : 384 ms P-R-T Axes : 064 055 042 degrees QTc Int : 432 ms Sinus rhythm with 1st degree A-V block Otherwise normal ECG When compared with ECG of 30-MAR-2020 20:48, No significant change was found Referred By: Nati Miranda Electronically Signed By:VICKY CRAIG MD
--- NOTE | 2021-06-24 19:01 | PC.NURSE ---
IV established, labs obtained. senior engineering tech at bedside for EKG. VSS. Continue to monitor.
[2021-06-24 19:03] VITALS: BP 127/65; PULSE 77; RESP 16; O2SAT 99
[2021-06-24 19:12] LABS: MANUAL DIFF FLAG NO
[2021-06-24 19:19] LABS: Basophils Percent Auto 0.3 % (0-2); Eosinophils Absolute Auto 0.1 X10*3/uL (0.0-0.4); Eosinophils Percent Auto 1.4 % (0-4); Hematocrit 43.3 % (42.0-52.0); Hemoglobin 14.4 g/dl (14.0-18.0); Imm Gran Abs Auto 0.04 X10*3/uL (0.00-0.03); Imm Gran Pct Auto 0.5 % (0.0-0.4); Lymphocytes Percent Auto 22.6 % (20-40); Mean Corpuscular HGB Conc 33.3 g/dl (31.0-36.0); Mean Corpuscular Hemoglobin 29.3 pg (27.0-33.0); Mean Corpuscular Volume 88.2 fL (80.0-98.0); Mean Platelet Volume 9.2 fL (9.4-12.4); Monocytes Absolute Auto 0.5 X10*3/uL (0.1-1.2); Neutrophils Absolute Auto 6.1 x10*3/uL (2.0-8.3); Neutrophils Percent Auto 69.2 % (45-73); Platelet Count 322 X10*3/uL (160-400); Red Blood Count 4.91 X10*6/uL (4.60-5.80); White Blood Count 8.8 X10*3/uL (4.8-10.8)
[2021-06-24 19:27] LABS: Prothrombin Time 11.6 SEC (9.9-13.0)
[2021-06-24 19:29] LABS: Partial Thromboplastin Time 37.5 SEC (24.1-38.0)
[2021-06-24 19:30] LABS: Alanine Aminotransferase 16 U/L (0-40); Albumin Level 4.1 g/dL (3.5-5.0); Alkaline Phosphatase 74 U/L (39-117); Anion Gap 13 (12-20); Aspartate Amino Transferase 18 U/L (5-37); Bilirubin Direct 0.2 mg/dL (0.0-0.5); Bilirubin Total 0.4 mg/dL (0.0-1.0); Blood Urea Nitrogen 14 mg/dL (9-16); C Reactive Protein 0.09 mg/dL (< or = 0.50); Calcium 9.7 mg/dL (8.4-10.2); Carbon Dioxide 30 mmol/L (22-29); Chloride 104 mmol/L (96-108); Creatinine Clr Calc Pharmacy 90.7; Estimated Glomerular Filt Rate > 60; Glucose Random 121 mg/dL (60-115); Lipase 21 U/L (8-78); Magnesium 2.5 mg/dL (1.6-2.6); Potassium 3.7 mmol/L (3.3-5.1); Sodium 143 mmol/L (135-145); Total Protein 7.4 g/dL (6.5-8.0)
[2021-06-24 19:32] LABS: Troponin-I High Sensitivity < 3.5 ng/L (<3.5-35.0)
[2021-06-24 19:57] LABS: Erythrocyte Sedimentation Rate 12 MM/HR (0-15)
--- NOTE | 2021-06-24 20:24 | PC.NURSE ---
Pt off to CT on hospital bed.
--- NOTE | 2021-06-24 21:26 | PC.NURSE ---
Pt requesting food/drink, per FACILITIES MANAGEMENT EXECUTIVE to wait until CT results are back.
[2021-06-24 21:58] VITALS: BP 110/63; PULSE 63; RESP 16; O2SAT 100
== END 2021-06-24 22:15 | disposition home or self-care (01) ==
PROVIDERS: Nurse Practitioner Family; Emergency Provider Emergency Medicine; PCP Physician Assistant
DX: H53.8 Other visual disturbances (principal); R29.700 NIHSS score 0; F17.210 Nicotine dependence, cigarettes, uncomplicated; Z71.6 Tobacco abuse counseling
CPT/HCPCS: 36415; 70496; 70498; 80048; 80076; 83690; 83735; 84484; 85025; 85610; 85652; 85730; 86140; 93005; 99284

== ENCOUNTER → 2021-08-13 12:29 | Outpatient (REF) | payer OTHER, SELFPAY ==
--- NOTE | 2021-08-13 12:32 | CA_ITS ---
Transthoracic Echocardiogram Patient (Last, First, Middle): Raciel Castillo L Gender: Male Date of : 1965 Age: 56 Procedure Date: 08/13/2021 Procedure Type: Transthoracic Echocardiogram Location: OP Height: 177.8 cm Weight: 78.93 kg BSA: 1.97 m2 Heart Rate: bpm BP: 120 / 78 mmHg Water Rights Specialist: YR/TO Referring MD: Virgilio Ricks PA-C Symptoms: H53.133 - Sudden visual loss, bilateral Study Quality: Good ECG Rhythm: Sinus Conclusions: - The left ventricular systolic function is normal. The calculated ejection fraction is 61% by biplane method. - No obvious valvular pathology seen on this study. Findings Left Ventricle Normal left ventricular cavity size. There is normal left ventricular wall thickness. The left ventricular systolic function is normal. The calculated ejection fraction is 61% by biplane method. There is no evidence of regional wall motion abnormalities. Diastolic function is normal for age. LV peak global longitudinal strain -19.2% (normal). Right Ventricle Normal right ventricular cavity size and systolic function. Atria Both atria are normal in size. Aortic Valve There is a normal trileaflet aortic valve. There is no aortic valve stenosis. There is no aortic valve regurgitation. Mitral Valve The mitral valve appears normal. There is trace mitral valve regurgitation. There is no mitral valve stenosis. Pulmonic Valve The pulmonic valve was not well visualized. Tricuspid Valve Normal tricuspid valve structure. There is trace tricuspid valve regurgitation. The pulmonary artery systolic pressure is normal. Great Vessels The aortic annulus, sinuses of valsalva, and asc aorta are normal in size. Venous The inferior vena cava is normal in size and collapses greater than 50% with inspiration. Pericardium/Pleural There is no evidence of pericardial effusion. Prior Study Comparison No prior study available for comparison. Recommendations, Care & Conclusions No obvious valvular pathology seen on this study. Measurements 2D Linear Measurements IVSd: 1.08 0.6-0.9/0.6-1.0 cm LVIDd: 4.44 3.9-5.3/4.2-5.9 cm LVIDd Index: 2.25 2.4-3.2/2.2-3.1 cm/m2 LVIDs: 3.05 2.0-3.6 cm LVPWd: 1.06 0.7-1.1 cm LA Diam: 3.50 2.7-3.8/3.0-4.0 cm LAIDs Index: 1.78 1.5-2.3 cm/m2 LV Mass: 205.26 67-162/88-224 g LV Mass Index: 104.19 43-95/49-115 g/m2 LVOT Diam: 2.30 3.0+(-)1.3 cm 2D Systolic Function EF 4C: 57.80 >55% EF 2C: 64.80 >55% EF BiP: 60.90 >55% Mitral Valve MV Pk E: 0.72 MV PK A: 0.46 MV Decel Time: 241.00 E/A: 1.60 E'Lateral: 9.90 E'Medial: 8.59 E/E' Med: 8.40 E/E' Lat: 7.30 PHT: 71.00 MVA PHT: 3.10 Decel Don[place]han: 3.01 Aortic Valve AoV Pk Macario: 1.23 AoV Mn Macario: 0.80 AoV VTI: 0.24 AoV Pk Grad: 6.00 Aov Mn Grad: 3.00 MERY Cont.VTI: 3.42 LVOT LVOT Pk Macario: 0.88 LVOT Mn Macario: 0.59 LVOT VTI: 0.20 LVOT Pk Grad: 3.00 LVOT Mn Grad: 2.00 LVOT Diam: 2.30 LVOT Area: 4.15 Diastolic Function MV Pk E: 0.72 MV Pk A: 0.46 E/A: 1.60 E'Medial: 8.59 E/E' Med: 8.40 E' Laterial: 9.90 E/E' Lat: 7.30 Right Ventricle TAPSE (mm): 19.50 TVS' Macario: 14.30 Tricuspid Valve RA Press: 3.00 Great Vessels Aorta Sinus of Valsalva: 3.12 2.0-3.[address] Ridge: 2.88 1.7-3.4 cm Ao Asc: 3.20 2.1-3.4 cm Ao Arch: 2.80 Updated in Other Vendor System with Status of Final Tejinder Peterson MD electronically signed on 08/15/2021 1:28:30 PM with status of Final
== END ==
LOC: HO.CARD 12:29
PROVIDERS: PCP Physician Assistant; Visit Provider Physician Assistant
DX: H53.133 Sudden visual loss, bilateral (principal)
CPT/HCPCS: 93306

== ENCOUNTER 2022-10-23 13:57 | Outpatient (REF) | payer OTHER, SELFPAY ==
--- NOTE | ~2022-10-23 | CT_ITS ---
EXAMINATION: CT CHEST SCREENING CLINICAL INFORMATION: Nicotine dependence. COMPARISON: None available. TECHNIQUE: Multidetector volumetric CT imaging of the chest is performed without contrast using low dose technique. Additional 2D coronal and sagittal reformatted images and axial 3D maximum intensity projection (MIP) images are generated on the CT workstation. This CT examination was performed using dose optimization techniques as appropriate, variously including the following: *Automated exposure control *Adjustment of mA and/or kV according to patient size (this includes techniques or standardized protocols for targeted exams where dose is matched to indication/reason for exam; i.e. extremities or head) *Use of iterative reconstruction technique DLP: 51 mGy-cm FINDINGS: LUNGS: The lungs are well expanded and clear of acute pneumonic process. There is a 3 mm nodule left major fissure axial image 262/6, 3 mm nodule left lower lobe axial image 348/6, 2 mm calcified nodule left lower lobe axial image 255/6. No acute pneumonic consolidation, mass or ground-glass density seen. There is plate-like atelectasis left lung base. MEDIASTINUM: The thyroid lobes are symmetric and normal. The central trachea and the bronchi are widely patent. Heart size and the great vessels are normal caliber. No abnormal-sized mediastinal lymph node seen. There is no pericardial effusion. CORONARY ARTERY CALCIFICATION: None visualized on this study. PLEURA: There is no pleural effusion. No pleural mass or thickening. AXILLA: No lymphadenopathy. UPPER ABDOMEN: Visualized liver, spleen, pancreas and bilateral adrenal glands are unremarkable. OSSEOUS STRUCTURES: No aggressive lytic or sclerotic process seen. CT/CT lung screening IMPRESSION: 1. Small pulmonary nodules. ASSESSMENT: Lung-RADS category 2: Benign RECOMMENDATION: Low-dose annual CT chest
--- NOTE | ~2022-10-23 | XR_ITS ---
EXAMINATION: XR SHOULDER, LEFT CLINICAL INFORMATION: Left shoulder pain. COMPARISON: None available. TECHNIQUE: AP external rotation, Grashey, scapular Y, and axillary views of the left shoulder. FINDINGS: The bones and soft tissues appear unremarkable. No fracture appreciated. Glenohumeral and acromioclavicular alignment is anatomic with normal joint space. No abnormal soft tissue calcifications. XR/XR shoulder LT min 2V IMPRESSION: Normal plain film examination of the left shoulder.
== END 2022-10-23 13:58 | disposition home or self-care (01) ==
LOC: HO.CT 13:57
PROVIDERS: PCP Physician Assistant; Visit Provider Physician Assistant Medical
DX: Z12.2 Encounter for screening for malignant neoplasm of respiratory organs (principal); F17.210 Nicotine dependence, cigarettes, uncomplicated; M25.512 Pain in left shoulder
CPT/HCPCS: 71271; 73030; G0296

== ENCOUNTER 2023-01-07 11:08 | Outpatient (AMB) | payer OTHER, SELFPAY ==
[2023-01-07 11:15] VITALS: BP 122/74; PULSE 63; BMI 25.1
--- NOTE | 2023-01-07 11:15 | A.OFFVIS_ITS ---
Intake Vital Signs 01/07/23 11:15 Height 5 ft 10 in Weight 175 lb 0.752 oz BMI 25.1 BP 122/74 Blood Pressure Location Lt brachial Position Sitting Pulse 63 Intake Visit Reasons: Colonoscopy Screening Intake Note: Raciel presents in office as a new.patient for a colonoscopy screening PT CC: pt reports having abdominal pain every morning, 2nd colo pt denies any other GI Issues Car Wash Attendant Automatic Required: No Accompanied by: Self / Same As Patient Allergies No Known Allergies [No Known Allergies*] Allergy (Verified 01/07/23 11:15) Medication List - Last Reconciled 01/07/23 by Josette Cantu PA-C No Known Home Meds HPI HPI Comments History of Present Illness Details A 57 y/o male history of colon polyps 03/17 adenoma- Graeme-low due for colonoscopy Bowels are normal Appetite is good. He has no cardiac or respiratory No nausea, vomiting, hematemesis, hematochezia fever chills PFSH Medical History Hemochromatosis carrier Hx of syphilis Nicotine dependence, cigarettes, uncomplicated RCT (rotator cuff tear) Sciatica, right side Surgical History History of axillary surgery History of colonoscopy History of foot surgery History of repair of right rotator cuff Family History Father Diabetes Colon cancer, Onset Age: 73 Mother Diabetes Brother Diabetes Social History Housing: Apartment Alcohol intake: current Alcohol intake frequency: a few times a week Alcohol type: beer Patient Tobacco Use Status: Current everyday Tobacco user Tobacco use type: Cigarette Cigarette Packs Per Day: 1 Years Smoked: (onset 16yo, 1ppd x 41yrs, 40pyh) e-Cigarette/Vaping Use: Never Used Second Hand Smoke Exposure: Yes service: No Current occupational status: unemployed and disabled Cognitive needs: No Hearing needs: No Vision needs: Yes (GLASSES) Review of Systems Const All systems reviewed & are unremarkable except as noted in HPI and below Card Denies chest pain and Denies dyspnea Resp Denies cough and Denies dyspnea GI Denies abdominal pain and Denies change in bowel habits Physical Exam Vital Signs: Last Vital Signs Pulse 63 01/07/23 11:15 BP 122/74 01/07/23 11:15 BMI result Body Mass Index 25.1 Const General: cooperative, healthy appearing, comfortable and no acute distress Orientation/consciousness: patient oriented x3 Limitations: no limitations Eyes Sclerae: sclerae normal Resp Effort & Inspection: normal respiratory effort and able to speak in complete sentences Auscultation: clear to auscultation bilaterally, no rales, no rhonchi and no wheezes Cardio Rate: regular rate Rhythm: regular rhythm Heart sounds: S1 normal heart sound present and S2 normal heart sound present GI Palpation (GI): Soft to palpation and nontender Auscultation: normal bowel sounds Skin General skin exam: no rashes or lesions noted Neuro General: patient oriented x3 Extrem General: Yes full ROM Psych Appearance: grossly normal Mental Status: mental status grossly normal Speech and movement: Normal speech and movement present Affect: normal affect Attitude: cooperative Thought process: Normal thought process present Thought content: Normal thought content present Insight: Good insight present (Psych) Judgement: Good judgement present (Psych) Assessment & Plan Assessment & Plan (1) Adenomatous colon polyp: Code(s): D12.6 - Benign neoplasm of colon, unspecified Plan polyp surveillance colonoscopy MiraLax Gatorade prep Orders: Orders Colonoscopy - GI Use Only 01/07/23 D12.6 - Benign neoplasm of colon, unspecified Medications: New bisacodyl (Dulcolax (bisacodyl)) Take 4 tablets by mouth at 12:00pm the day before your procedure. 20 mg (4 x 5 mg) PO ONCE 1 day 4 tabs 0RF colonoscopy prep Z12.11 - Encounter for screening for malignant neoplasm of colon polyethylene glycol 3350 (Miralax) Take as directed by mouth the day before your procedure. 238 grams PO ONCE 1 day 238 grams 0RF laxative effect Patient Instructions: Pleasant 57-year-old Gent personal history adenomatous colon polyps 2018 due for polyp surveillance In discussed procedure, rare risks need for escorted due to anesthesia as well as MiraLax Gatorade split prep literature given Encouraged to call questions or concerns Appreciate the opportunity assist in care the patient Coding Level of Care Code New Pt Level 3 (26594) Diagnoses Adenomatous colon polyp D12.6 Time Spent (min) 30
== END 2023-01-07 12:19 | disposition home or self-care (01) ==
PROVIDERS: PCP Physician Assistant; Visit Provider Physician Assistant
DX: D12.6 Benign neoplasm of colon, unspecified (principal)
CPT/HCPCS: 99203

== ENCOUNTER → 2023-01-07 11:08 | Outpatient (BNVA) | payer OTHER, SELFPAY | PROVIDERS: PCP Physician Assistant; Visit Provider Physician Assistant | DX: Z01.818 Encounter for other preprocedural examination (principal); Z86.010 Personal history of colon polyps | CPT/HCPCS: 99202 ==

== ENCOUNTER 2023-01-28 14:48 | Emergency (ER) | payer OTHER, SELFPAY ==
[2023-01-28 14:54] VITALS: BP 127/75; PULSE 68; RESP 16; TEMP 37.1; O2SAT 96; BMI 25.1
--- NOTE | 2023-01-28 14:58 | ED_ITS ---
HPI - General Adult General Chief complaint: Wound/Laceration Stated complaint: puncture hole in hand Time Seen by Provider: 01/28/23 15:13 History of Present Illness HPI narrative: Patient seen by SIMONE Alvarez in the [facility] Related Data Previous Rx's Medication Instructions Recorded bisacodyl 5 mg tablet,delayed 20 mg PO ONCE colonoscopy prep 1 01/07/23 release (Dulcolax (bisacodyl)) day #4 tabs polyethylene glycol 3350 17 238 g PO ONCE laxative effect 1 01/07/23 gram/dose oral powder (Miralax) day #238 grams Allergies Allergy/AdvReac Type Severity Reaction Status Date / Time No Known Allergies Allergy Verified 01/28/23 14:59 [No Known Allergies*] [facility] Past Medical History Medical History Hemochromatosis carrier Hx of syphilis Nicotine dependence, cigarettes, uncomplicated RCT (rotator cuff tear) Sciatica, right side Surgical History History of axillary surgery History of colonoscopy History of foot surgery History of repair of right rotator cuff Family History Family History Father Diabetes Colon cancer, Onset Age: 73 Mother Diabetes Brother Diabetes Social History Social History Housing: Apartment Alcohol intake: current Alcohol intake frequency: a few times a week Alcohol type: beer Patient Tobacco Use Status: Current everyday Tobacco user Tobacco use type: Cigarette Cigarette Packs Per Day: 1 Years Smoked: (onset 16yo, 1ppd x 41yrs, 40pyh) e-Cigarette/Vaping Use: Never Used Second Hand Smoke Exposure: Yes Advance Directives: No Advance Directives Information Provided: Yes service: No Current occupational status: unemployed and disabled Cognitive needs: No Hearing needs: No Vision needs: Yes (GLASSES) Physical Exam ED Vital Signs: Vital Signs - 24 hr 01/28/23 14:54 Temperature 98.8 F Pulse Rate 68 Respiratory Rate 16 Blood Pressure 127/75 Pulse Oximetry 96 Oxygen Delivery Method Room Air BMI result Body Mass Index 25.1 Course Course Course Narrative: RME: 57 yold presents to the ED for puncture laceration in left hand palm near thumb while working on his car at home. patient has complete range of motiont of all fingers. patient last tetanus shot was 6 years ago. Medications Administered Discontinued Medications Generic Name Dose Route Start Last Admin Trade Name Yanira PRN Reason Stop Dose Admin Diphtheria/Tetanus/Acell Pertussis 0.5 ml 01/28/23 15:27 01/28/23 15:32 Diphth,Pertus(Acell),Tet Adult 0.5 Ml Syringe IM 01/28/23 15:28 0.5 ml .ONCE ONE Administration Lidocaine HCl 5 ml 01/28/23 15:27 01/28/23 15:32 Lidocaine Hcl 1 % Mpf 5 Ml Vial SUBCUT 01/28/23 15:28 5 ml ONCE ONE Administration Discharge Plan Discharge Clinical Impression: Laceration of left hand Patient Disposition: Home, Self-Care Additional Instructions: Cut was closed with 2 stitches that need to be removed in 7 days You got a tetanus shot Return any time for redness swelling pain discharge from wound any sign of infection any worse condition or any concerns Prescriptions: No Action bisacodyl [Dulcolax (bisacodyl)] 5 mg tablet,delayed release (DR/EC) 20 mg PO ONCE 1 Days Qty: 4 0RF Rx Instructions: Take 4 tablets by mouth at 12:00pm the day before your procedure. polyethylene glycol 3350 [Miralax] 17 gram/dose powder 238 g PO ONCE 1 Days Qty: 238 0RF Rx Instructions: Take as directed by mouth the day before your procedure. Interventions: ED Discharge Assessment Last Done: 01/28/23 15:46 Discharge Date/Time: 01/28/23 15:49
--- NOTE | 2023-01-28 15:31 | ED.WOUNDLAC ---
HPI - Wound/Laceration General Chief Complaint: Wound/Laceration Stated Complaint: puncture hole in hand Time Seen by Provider: 01/28/23 15:13 History of Present Illness HPI narrative: Patient complains of laceration to the web say so in the left hand between thumb and index finger from a sharp piece of metal, no numbness no weakness no tingling no other complaint no other injury Related Data Previous Rx's Medication Instructions Recorded bisacodyl 5 mg tablet,delayed 20 mg PO ONCE colonoscopy prep 1 01/07/23 release (Dulcolax (bisacodyl)) day #4 tabs polyethylene glycol 3350 17 238 g PO ONCE laxative effect 1 01/07/23 gram/dose oral powder (Miralax) day #238 grams Allergies Allergy/AdvReac Type Severity Reaction Status Date / Time No Known Allergies Allergy Verified 01/28/23 14:59 [No Known Allergies*] [facility] Past Medical History Source: nursing notes reviewed Medical History Hemochromatosis carrier Hx of syphilis Nicotine dependence, cigarettes, uncomplicated RCT (rotator cuff tear) Sciatica, right side Surgical History History of axillary surgery History of colonoscopy History of foot surgery History of repair of right rotator cuff Family History Family History Father Diabetes Colon cancer, Onset Age: 73 Mother Diabetes Brother Diabetes Social History Social History Housing: Apartment Alcohol intake: current Alcohol intake frequency: a few times a week Alcohol type: beer Patient Tobacco Use Status: Current everyday Tobacco user Tobacco use type: Cigarette Cigarette Packs Per Day: 1 Years Smoked: (onset 16yo, 1ppd x 41yrs, 40pyh) e-Cigarette/Vaping Use: Never Used Second Hand Smoke Exposure: Yes Advance Directives: No Advance Directives Information Provided: Yes service: No Current occupational status: unemployed and disabled Cognitive needs: No Hearing needs: No Vision needs: Yes (GLASSES) Physical Exam Vital Signs: Vital Signs: Last Vital Signs Temp 98.8 F 01/28/23 14:54 Pulse 68 01/28/23 14:54 Resp 16 01/28/23 14:54 BP 127/75 01/28/23 14:54 Pulse Ox 96 01/28/23 14:54 O2 Del Method Room Air 01/28/23 14:54 BMI result Body Mass Index 25.1 General appearance comfortable cooperative no distress Head normocephalic atraumatic Neck is supple Respiratory no distress Extremities full range of motion x4 including left hand in all fingers There is a 1 cm laceration subcutaneous in the webspace between left thumb and index finger, neurovascular intact distal, full tendon function on both flexion and extension, neurovascular intact distal, full range of motion in the hand thumb and index finger Course Course Course Narrative: 1 cm laceration of the left hand is cleansed and irrigated Anesthesia is 4 cc of 1% lidocaine The laceration was closed with 2x5.0 nylon sutures, bleeding controlled wound well-approximated Dressing applied Medications Administered Discontinued Medications Generic Name Dose Route Start Last Admin Trade Name Freq PRN Reason Stop Dose Admin Diphtheria/Tetanus/Acell Pertussis 0.5 ml 01/28/23 15:27 01/28/23 15:32 Diphth,Pertus(Acell),Tet Adult 0.5 Ml Syringe IM 01/28/23 15:28 0.5 ml .ONCE ONE Administration Lidocaine HCl 5 ml 01/28/23 15:27 01/28/23 15:32 Lidocaine Hcl 1 % Mpf 5 Ml Vial SUBCUT 01/28/23 15:28 5 ml ONCE ONE Administration Discharge Plan Discharge Clinical Impression: Laceration of left hand Patient Disposition: Home, Self-Care Additional Instructions: Cut was closed with 2 stitches that need to be removed in 7 days You got a tetanus shot Return any time for redness swelling pain discharge from wound any sign of infection any worse condition or any concerns Prescriptions: No Action bisacodyl [Dulcolax (bisacodyl)] 5 mg tablet,delayed release (DR/EC) 20 mg PO ONCE 1 Days Qty: 4 0RF Rx Instructions: Take 4 tablets by mouth at 12:00pm the day before your procedure. polyethylene glycol 3350 [Miralax] 17 gram/dose powder 238 g PO ONCE 1 Days Qty: 238 0RF Rx Instructions: Take as directed by mouth the day before your procedure. Interventions: ED Discharge Assessment Last Done: 01/28/23 15:46 Discharge Date/Time: 01/28/23 15:49
[2023-01-28] MEDS: Lidocaine HCl 1 % MPF 5 ML VIAL SUBCUT (15:32)
[2023-01-28] MEDS: Diphth,Pertus(ACell),Tet Adult 0.5 ML SYRINGE IM (15:32)
--- NOTE | 2023-01-28 15:38 | PC.NURSE ---
pt medicated per JUL- tetanus updated vis provided
== END 2023-01-28 15:49 | disposition home or self-care (01) ==
PROVIDERS: Emergency Provider Student in an Organized Health Care Education/Training Program; PCP Physician Assistant
DX: S61.412A Laceration without foreign body of left hand, initial encounter (principal); W26.8XXA Contact with other sharp object(s), not elsewhere classified, initial encounter; Y93.9 Activity, unspecified; Y92.9 Unspecified place or not applicable; Y99.9 Unspecified external cause status
CPT/HCPCS: 12001; 90471; 90715; 99282; 99284

== ENCOUNTER 2023-02-08 13:50 | Outpatient (AMB) | payer OTHER, SELFPAY ==
[2023-02-08 14:02] VITALS: BP 104/60; PULSE 85; RESP 16; O2SAT 97; BMI 25.3
--- NOTE | 2023-02-08 14:02 | MHC.PC.OV ---
Vital Signs 02/08/23 14:02 Height 5 ft 10 in Weight 176 lb 4 oz BMI 25.3 BP 104/60 Blood Pressure Location Lt brachial Position Sitting Respiration 16 Pulse 85 Pulse Source Pulse Oximeter Pulse Oximetry (%) 97 Oxygen Delivery Method Room Air Intake Visit Reasons: 5 m follow up Intake Note: Pt is here for for an ADL assessment. Pt daughters are requesting the evaluation for [employer]. In School Suspension Coordinator Required: No Accompanied by: Self / Same As Patient Allergies No Known Allergies [No Known Allergies*] Allergy (Verified 02/08/23 14:19) Medication List - Last Reconciled 02/08/23 by Virgilio Ricks PA-C bisacodyl (Dulcolax (bisacodyl)) 20 mg (4 x 5 mg) PO ONCE 1 day polyethylene glycol 3350 (Miralax) 238 grams PO ONCE 1 day Tobacco use date assessed: 09/15/22 Dental Screening Dental Screen Date: 02/08/23 Did you have a dental visit in the last 12 months?: Yes Did you have a dental problem in the last 6 months where you did not have access to dental care?: No HPI 5 m follow up HPI Details Patient is a 57-year-old male here today for follow-up visit.? Patient has a past medical history significant for tobacco use disorder, tubular adenoma of the colon, .. Concern--> patient's family would like [employer] help for patient at home to help him with activities of daily living. Patient does have emphysema and often does get somewhat fatigued with long periods of ambulation and going up and downstairs. Also reports having bilateral forearm muscular pain worse in the mornings and at night. Emphysema/ tobacco dependency: Has seen lung cancer screening program and gotten CT lungs with did show stable nodule repeat CT 1 year. Patient does understand he needs to quit smoking and declines my offers on starting nicotine replacement therapy.? He will try to wean cigarettes on his own.? Most recent CT head and neck incidentally finding evidence of emphysema in the lung. .. Colon cancer screening : Has seen GI for his pre colonoscopy screening and has been told. [facility] Medical History Nicotine dependence, cigarettes, uncomplicated Hemochromatosis carrier Hx of syphilis Sciatica, right side RCT (rotator cuff tear) Surgical History History of axillary surgery History of repair of right rotator cuff History of colonoscopy History of foot surgery Family History Father Diabetes Colon cancer, Onset Age: 73 Mother Diabetes Brother Diabetes Social History Housing: Apartment Alcohol intake: current Alcohol intake frequency: a few times a week Alcohol type: beer Patient Tobacco Use Status: Current everyday Tobacco user Tobacco use type: Cigarette Cigarette Packs Per Day: 1 Years Smoked: (onset 16yo, 1ppd x 41yrs, 40pyh) e-Cigarette/Vaping Use: Never Used Second Hand Smoke Exposure: Yes service: No Current occupational status: unemployed and disabled Cognitive needs: No Hearing needs: No Vision needs: Yes (GLASSES) Questionnaire Thrive Questionnaire Date Thrive assessed: 09/15/22 HORTENCIA-7 AMB Questionnaire HORTENCIA-7 Date HORTENCIA - 7 assessed: 09/15/22 Source: Developed by Drs. Ab Rosario, Adriana Damon, Munir Rubio and colleagues, with an educational rebekah from [employer]. Review of Systems Const Denies headache(s) Eyes Denies loss of vision ENT Denies vertigo, Denies dizziness, Denies headache(s) and Denies sore throat Card Denies chest pain, Denies leg edema and Denies lightheadedness Resp Denies cough, Denies hemoptysis and Denies wheezing GI Denies abdominal pain, Denies melena, Denies constipation, Denies diarrhea and Denies vomiting Denies dysuria, Denies urinary frequency and Denies urinary urgency Musc Denies arthralgias, Denies joint swelling, Denies numbness and Denies tingling Neuro Denies Abnormal speech present, Denies behavioral changes, Denies vertigo, Denies dizziness, Denies headache(s), Denies loss of vision, Denies memory loss, Denies numbness and Denies tingling Psych Denies anxiety, Denies behavioral changes, Denies depression, Denies memory loss and Denies panic attacks Robert/Lymph Denies easy bleeding and Denies easy bruising Aller/Immun Denies wheezing Physical exam (Primary Care) Vital Signs: Last Vital Signs Pulse 85 02/08/23 14:02 Resp 16 02/08/23 14:02 BP 104/60 02/08/23 14:02 Pulse Ox 97 02/08/23 14:02 Oxygen Delivery Method Room Air 02/08/23 14:02 BMI result Body Mass Index 25.3 Tobacco/Smoking Status: Tobacco use Status Tobacco use date assessed 09/15/22 02/08/23 14:11 Patient Tobacco Use Status Current everyday Tobacco 02/08/23 14:11 Tobacco use type Cigarette 02/08/23 14:11 e-Cigarette/Vaping Use Never Used 02/08/23 14:11 Are you ready to quit: No Tobacco cessation counseling provided: Yes Relapse Prevention: discussed the importance of a supportive environment, discussed negative mood or depression after quitting, weight gain after smoking is common and discussed dietary, exercise and/or lifestyle changes Number of minutes spent counselin CPT code: 66112 - 4-10 Minutes Thrive Assessment: Date of Thrive Assessment Date Thrive assessed 09/15/22 02/08/23 14:11 Const General: healthy appearing, no acute distress, alert and awake Nutritional Appearance: well nourished Orientation/consciousness: oriented to person, oriented to place and oriented to time HENMT Ears: TM's normal bilaterally General nose exam: Normal nasal mucous membranes and turbinates present Eyes Conjunctivae: conjunctivae normal Sclerae: sclerae normal Pupils: Equal, round and reactive pupils present Neck Neck: Yes no lymphadenopathy and Yes no JVD Thyroid: Thyroid normal Carotids: no bruits Resp Effort & Inspection: normal respiratory effort and not tachypneic Auscultation: no crackles, no rales, no rhonchi and no wheezes Cardio Rate: regular rate Rhythm: regular rhythm Heart sounds: no murmurs and normal S1 and S2 GI Palpation (GI): Soft to palpation, nontender, no hepatomegaly and no splenomegaly Auscultation: normal bowel sounds Skin General skin exam: no rashes or lesions noted and dry skin Neuro General: oriented to person, oriented to place and oriented to time Cranial nerves: Yes Equal, round and reactive pupils present Speech: No Abnormal speech present Gait exam (Neuro): Normal gait present Motor exam (neuro): no tremor noted Extrem Right upper extremity: full ROM Left upper extremity: full ROM Right lower extremity: full ROM; no edema Left lower extremity: full ROM; no edema Psych Mental Status: mental status grossly normal Speech and movement: Normal speech and movement present Affect: normal affect Attitude: cooperative Thought process: Normal thought process present Assessment and Plan Assessment & Plan (1) Emphysema of lung: Code(s): J43.9 - Emphysema, unspecified Qualifiers: Emphysema type: centrilobular Qualified Code(s): J43.2 - Centrilobular emphysema Plan: Patient unfortunately continues to smoke a pack a day. Has emphysema. Has not need inhaler as he has been asymptomatic surprisingly. No COPD exacerbations ported. Family would like help for him with [employer] services to help him with activities of daily living (2) Nicotine dependence, cigarettes, uncomplicated: Comment: (current smoker - onset 16yo, 1ppd x 41yrs, 40pyh) Code(s): F17.210 - Nicotine dependence, cigarettes, uncomplicated Plan: Unfortunately continues to smoke [address] chest showing 3 mm nodule that will be followed on annual basis. Again advised on quitting smoking and patient agrees though finds it difficult to do so. Offered nicotine replacement though patient declines. (3) Lateral epicondylitis of both elbows: Code(s): M77.11 - Lateral epicondylitis, right elbow; M77.12 - Lateral epicondylitis, left elbow Plan: Will supply patient with NSAID to use for his tendinitis. Advised to rest and stretch his upper extremities (4) Screening for diabetes mellitus (DM): Code(s): Z13.1 - Encounter for screening for diabetes mellitus Orders: Orders Complete Blood Count no Diff Today J43.2 - Centrilobular emphysema Comprehensive [place]. Panel Fast Today J43.9 - Emphysema, unspecified, Z13.1 - Encounter for screening for diabetes mellitus Prostate Specific Antigen Scr Today J43.2 - Centrilobular emphysema, Z12.5 - Encounter for screening for malignant neoplasm of prostate Medications: New ibuprofen 800 mg PO Q8H PRN 45 tabs 0RF pain 15 days M77.11 - Lateral epicondylitis, right elbow, M77.12 - Lateral epicondylitis, left elbow Coding Level of Care Code Est Pt Level 4 (23637) Diagnoses Centrilobular emphysema J43.2 Emphysema type: centrilobular Nicotine dependence, cigarettes, uncomplicated F17.210 Lateral epicondylitis of both elbows M77.11; M77.12 Screening for diabetes mellitus (DM) Z13.1 Additional Codes Vital Signs *Quality* - CPT code: 87143 - 4-10 Minutes ([id number])
== END 2023-02-08 14:34 | disposition home or self-care (01) ==
PROVIDERS: PCP Physician Assistant; Visit Provider Physician Assistant
DX: J43.2 Centrilobular emphysema (principal); F17.210 Nicotine dependence, cigarettes, uncomplicated; M77.11 Lateral epicondylitis, right elbow; M77.12 Lateral epicondylitis, left elbow; Z13.1 Encounter for screening for diabetes mellitus
CPT/HCPCS: 99214

== ENCOUNTER 2023-07-06 09:05 | Day surgery (SDC) | payer OTHER, SELFPAY ==
--- NOTE | 2023-07-05 09:51 | P.CONAN_ITS ---
HPI - Anesthesia Eval Consult details Narrative: 57yo M for Colonoscopy [facility] Active Problems Active Problems: All Active Problems (Updated 02/08/23 @ 14:28 by Virgilio Ricks PA-C) Lateral epicondylitis of both elbows (Acute) Adenomatous colon polyp (Acute) Nicotine dependence, cigarettes, uncomplicated (Acute) Left shoulder pain (Acute) Hx of syphilis (Acute) Loss, vision, sudden (Acute) Emphysema of lung (Acute) Bilateral headaches (Acute) Blurred vision, bilateral (Acute) LLQ abdominal pain (Acute) Tubular adenoma (Acute) Past Medical History Medical History Nicotine dependence, cigarettes, uncomplicated Hemochromatosis carrier Hx of syphilis Sciatica, right side RCT (rotator cuff tear) Family History Family History Father Diabetes Colon cancer, Onset Age: 73 Mother Diabetes Brother Diabetes Surgical History Surgical History History of axillary surgery History of repair of right rotator cuff History of colonoscopy History of foot surgery Social History Social History Housing: Apartment Alcohol intake: current Alcohol intake frequency: a few times a week Alcohol type: beer Patient Tobacco Use Status: Current everyday Tobacco user Tobacco use type: Cigarette Cigarette Packs Per Day: 1 Years Smoked: (onset 16yo, 1ppd x 41yrs, 40pyh) e-Cigarette/Vaping Use: Never Used Second Hand Smoke Exposure: Yes service: No Current occupational status: unemployed and disabled Cognitive needs: No Hearing needs: No Vision needs: Yes (GLASSES) Meds Allergies Allergy/AdvReac Type Severity Reaction Status Date / Time No Known Allergies Allergy Verified 02/08/23 14:19 [No Known Allergies*] Assessment and Plan Assessment Anesthesia Assessment: Chart Reviewed
[2023-07-06 09:46] VITALS: BMI 26.5
[2023-07-06 10:02] VITALS: BP 142/80; PULSE 61; RESP 16; TEMP 36.4; O2SAT 98
[2023-07-06] MEDS: Lactated Ringers 1,000 ML 100 ML IVCONT (10:09)
--- NOTE | 2023-07-06 10:09 | P.HPSUR_ITS ---
Pre-Procedural Eval Section A - 24 Hr Update-Section A only Date of Service: 07/06/23 Section B - Complete if H&P > 30 days Chief Complaint: screening Details of Present Illness: father--CRC Relevant Family History (Specify if Yes): Yes Relevant Social History: Tobacco Use Present Medications: see Short Stay Collaborative assessment Medical History: Significant History (Nicotine dependence, cigarettes, uncomplicated Hemochromatosis carrier Hx of syphilis Sciatica, right side RCT (rotator cuff tear)) History of Previous Operations: Relevant previous surgery/procedure and date(s) (History of axillary surgery History of repair of right rotator cuff History of colonoscopy History of foot surgery) Allergies: Allergies Allergy/AdvReac Type Severity Reaction Status Date / Time No Known Allergies Allergy Verified 07/06/23 09:54 [No Known Allergies*] Review of Systems Sugical H&P ROS: Negative: Constitution, Cardiovascular, Respiratory, Neurological, Psychiatric, Hem-Onc, Allergic/Immunologic, Gastrointestinal, Genitourinary, Musculoskeletal, Integumentary, Endocrine and Eyes/Ears/Nose/Throat Exam Surgical H&P Exam: Normal: HEENT, Normal: Heart, Normal: Lungs, Normal: Ex tremities, Normal: Abdomen, Normal: Skin and Normal: Neurological Plan Diagnosis/Plan: Unchanged I have reviewed the history and physical and performed a pertinent physical examination on my patient. No changes have occurred unless specified. Time Spent With Patient Time: Total time managing care of this patient today ____ minutes.
--- NOTE | 2023-07-06 10:22 | HO.ANESPROP2 ---
[facility] Active Problems Active Problems: All Active Problems (Updated 02/08/23 @ 14:28 by Virgilio iRcks PA-C) Lateral epicondylitis of both elbows (Acute) Adenomatous colon polyp (Acute) Nicotine dependence, cigarettes, uncomplicated (Acute) Left shoulder pain (Acute) Hx of syphilis (Acute) Loss, vision, sudden (Acute) Emphysema of lung (Acute) Bilateral headaches (Acute) Blurred vision, bilateral (Acute) LLQ abdominal pain (Acute) Tubular adenoma (Acute) Past Medical History Medical History Nicotine dependence, cigarettes, uncomplicated Hemochromatosis carrier Hx of syphilis Sciatica, right side RCT (rotator cuff tear) Functional capacity: independent ambulation Family History Family History Father Diabetes Colon cancer, Onset Age: 73 Mother Diabetes Brother Diabetes Family history of problems with anesthesia: No Surgical History Surgical History History of axillary surgery History of repair of right rotator cuff History of colonoscopy History of foot surgery History of Problems with Anesthesia: No Social History Social History Housing: Apartment Alcohol intake: current Alcohol intake frequency: a few times a week Alcohol type: beer Patient Tobacco Use Status: Current everyday Tobacco user Tobacco use type: Cigarette Cigarette Packs Per Day: 1 Cigarettes Per Day: 20.0 Years Smoked: (onset 16yo, 1ppd x 41yrs, 40pyh) e-Cigarette/Vaping Use: Never Used Second Hand Smoke Exposure: Yes Use of substances other than those prescribed or required for medical reasons: No Are you DNR?: No Advance Directives: No Advance Directives Information Provided: Yes service: No Current occupational status: unemployed and disabled Cognitive needs: No Hearing needs: No Vision needs: Yes (GLASSES) Meds Allergies Allergy/AdvReac Type Severity Reaction Status Date / Time No Known Allergies Allergy Verified 07/06/23 09:54 [No Known Allergies*] Active Medications: Current Medications Lactated Ringer's (Lr) 1,000 mls @ 100 mls/hr IVCONT .Q10H DANA Last Admin: 07/06/23 10:09 Dose: 100 mls/hr Exam Height,Weight and Vital Signs: Height 5 ft 10 in Weight 83.688 kg Last Vital Signs Temp 97.6 F 07/06/23 10:02 Pulse 61 07/06/23 10:02 Resp 16 07/06/23 10:02 BP 142/80 H 07/06/23 10:02 Pulse Ox 98 07/06/23 10:02 O2 Del Method Room Air 07/06/23 10:02 Airway Mallampati Class: II TM Dist: >3cm Neck ROM: Full Loose/Missing/Broken Teeth: Yes, Upper and Lower Heart: RRR Lungs: CTA Assessment and Plan Assessment Anesthesia Assessment: Anesthesia Plan Discussed and Smoking Cess. Discussed Final Anesthetic Review Family History of Problems with Anesthesia: No History of Problems with Anesthesia: No NPO: Yes ASA Class: III Final Preanesthetic Review: Meds/Allgs Chart Reviewed, Consent Obtained/Reviewed and Anes Risks/Benef Reviewed Patient Risk: Low Procedure Risk: Low Anesthetic Plan Anesthetic Plan: MAC: Disposition: Standard PACU
--- NOTE | 2023-07-06 10:50 | W.PM.OPN ---
Operative Note Operative Note Date of Service: 07/06/23 Narrative: Operative Information Procedure Description: Colonoscopy Indication: FH of CRC Anesthesia: MAC COLONOSCOPY Instrument: Olympus variable stiffness pediatric scope 190L Colonoscopy Monitoring: Vital signs and clinical assessment, continuous EKG monitoring, Pulse oximetry, Carbon Dioxide monitoring and blood pressure monitoring were done throughout the procedure. Colon withdrawal time was 14 minutes. Procedure: The patient was placed in the left lateral decubitis position and pre-procedure medications were administered. After a digital rectal examination of the ano-rectum, the video colonoscope was inserted into the rectum and advanced through the colon to the cecum/TI. The colonoscope was slowly withdrawn in a retrograde panoramic fashion and the colon mucosa was carefully examined including a retroflexed view of the rectum. Findings and interventions are described below. Procedure Difficulty: easy Findings: Terminal Ileum-normal Cecum:normal Ascending Colon: normal Transverse Colon -normal Descending Colon:normal Sigmoid Colon: 9-10 mm sessile polyp removed with cold snare with one clip applied for hemostasis Rectum: Retroflexion with small internal hemorrhoids, grade I, 5-6 mm sessile polyp removed with cold forceps Anorectum - normal Colon preparation: [place] Bowel Preparation Scale Right colon; 2 Transverse colon: 2 Left colon; 2 (0 = Unprepared colon segment with mucosa not seen due to solid stool that cannot be cleared. 1 = Portion of mucosa of the colon segment seen, but other areas of the colon segment not well seen due to staining, residual stool and/or opaque liquid. 2 = Minor amount of residual staining, small fragments of stool and/or opaque liquid, but mucosa of colon segment seen well. 3 = Entire mucosa of colon segment seen well with no residual staining, small fragments of stool or opaque liquid) Impression and Post Procedure Diagnosis: polyps internal hemorrhoids Plan: High fiber diet leaflet Avoid straining at stool, epsom salts and sitz bath, anusol supps or cream Repeat Colonoscopy in 5 years due to polyps and FH of CRC or earlier if clinically indicated Above findings were reviewed with the patient and relevant handouts were provided if indicated.
[2023-07-06 10:55] VITALS: BP 92/58; PULSE 69; RESP 16; TEMP 36.2; O2SAT 97
[2023-07-06 11:10] VITALS: BP 110/73; PULSE 84; RESP 14; O2SAT 99
[2023-07-06 11:25] VITALS: BP 130/76; PULSE 79; RESP 15; TEMP 36.2; O2SAT 100
== END 2023-07-06 12:45 | disposition home or self-care (01) ==
PROVIDERS: Visit Provider Internal Medicine Gastroenterology
PROC: 0DJD8ZZ Inspection of Lower Intestinal Tract, Via Natural or Artificial Opening Endoscopic (ICD-10-PCS; CPT 45378; principal; 2023-07-06 11:40)
DX: Z12.11 Encounter for screening for malignant neoplasm of colon (principal); Z80.0 Family history of malignant neoplasm of digestive organs; D12.5 Benign neoplasm of sigmoid colon; K62.1 Rectal polyp; K64.0 First degree hemorrhoids; E83.110 Hereditary hemochromatosis; F17.210 Nicotine dependence, cigarettes, uncomplicated; Z79.1 Long term (current) use of non-steroidal anti-inflammatories (NSAID); Z86.19 Personal history of other infectious and parasitic diseases; Z98.890 Other specified postprocedural states
CPT/HCPCS: 45385; 45380; 88305; J1596; J2704

== ENCOUNTER → 2023-07-06 09:05 | Outpatient (BNV) | payer OTHER, SELFPAY | PROVIDERS: Visit Provider Internal Medicine Gastroenterology | DX: Z12.11 Encounter for screening for malignant neoplasm of colon (principal); Z80.0 Family history of malignant neoplasm of digestive organs; D12.5 Benign neoplasm of sigmoid colon; K63.5 Polyp of colon; K64.0 First degree hemorrhoids | CPT/HCPCS: 45380; 45385 ==

== ENCOUNTER 2023-09-20 09:45 | Outpatient (AMB) | payer OTHER, SELFPAY ==
[2023-09-20 09:54] VITALS: BP 112/66; PULSE 67; O2SAT 97; BMI 26.5
--- NOTE | 2023-09-20 09:54 | MHC.PC.OV ---
Vital Signs 09/20/23 09:54 Height 5 ft 10 in Weight 184 lb 8 oz BMI 26.5 BP 112/66 Blood Pressure Location Lt brachial Position Sitting Pulse 67 Pulse Source Pulse Oximeter Pulse Oximetry (%) 97 Oxygen Delivery Method Room Air Intake Visit Reasons: Annual exam Intake Note: Patient is here today for a physical. 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 Accompanied by: Self / Same As Patient Allergies No Known Allergies [No Known Allergies*] Allergy (Verified 09/20/23 10:50) Medication List - Last Reconciled 09/20/23 by Virgilio Ricks PA-C ibuprofen 800 mg PO Q8H PRN 15 days Tobacco use date assessed: 09/20/23 Dental Screening Dental Screen Date: 09/20/23 Did you have a dental visit in the last 12 months?: Yes Did you have a dental problem in the last 6 months where you did not have access to dental care?: No Was dental information given to patient?: Patient has dentist HPI Annual exam HPI Details Patient is a 58-year-old male here today for routine annual physical? Patient has a past medical history significant for tobacco use disorder, tubular adenoma of the colon, .. Concern--> continues to have lower lumbar spine pain, hinder him from some activities of daily living. Does enjoy golf, does use NSAID as needed for his lower back pain Has noted irritated dry scaly skin on the backside of his heels. He has used all kinds of moisturizers though have not been effective. He reports he has suffer with dry skin for many many years. Emphysema/ tobacco dependency: Has seen lung cancer screening program and gotten CT lungs with did show stable nodule repeat CT 1 year. Patient does understand he needs to quit smoking and declines my offers on starting nicotine replacement therapy.? He will try to wean cigarettes on his own.? . .. Colon cancer screening : Colonoscopy done in 2023, tubular adenoma polyp found, repeat 5 years Vaccines: Up-to-date with pneumonia, tetanus and COVID vaccine. Considering shingles vaccine [facility] [place] Medical History Nicotine dependence, cigarettes, uncomplicated Hemochromatosis carrier Hx of syphilis Sciatica, right side RCT (rotator cuff tear) Surgical History History of axillary surgery History of repair of right rotator cuff History of colonoscopy History of foot surgery Family History (Updated 09/20/23 @ 10:52 by Virgilio Ricks PA-C) Father Diabetes Colon cancer, Onset Age: 73 Mother Diabetes Brother Diabetes Substance use disorder Social History (Updated 09/20/23 @ 10:52 by Virgilio Ricks PA-C) Housing: Apartment Alcohol intake: current Alcohol intake frequency: a few times a week Alcohol type: beer Patient Tobacco Use Status: Current everyday Tobacco user Tobacco use type: Cigarette Cigarette Packs Per Day: 1 Cigarettes Per Day: 20.0 Years Smoked: (onset 16yo, 1ppd x 41yrs, 40pyh) e-Cigarette/Vaping Use: Never Used Second Hand Smoke Exposure: Yes service: No Current occupational status: unemployed and disabled Cognitive needs: No Hearing needs: No Vision needs: Yes (GLASSES) Questionnaire PHQ-9 Over the last 2 weeks, how often have you been bothered by any of the following problems? 1. Little interest or pleasure in doing things: not at all 2. Feeling down, depressed, or hopeless: not at all 3. Trouble falling or staying asleep, or sleeping too much: not at all 4. Feeling tired or having little energy: not at all 5. Poor appetite or overeating: not at all 6. Feeling bad about yourself - or that you are a failure or have let yourself or your family down: not at all 7. Trouble concentrating on things, such as reading the newspaper or watching television: not at all 8. Moving or speaking so slowly that other people could have noticed. Or the opposite - being so fidgety or restless that you have been moving around a lot more than usual: not at all 9. Thoughts that you would be better off or of hurting yourself in some way: not at all Total score: 0 Depression Screening Interpretation: Negative Depression Screening Done: Yes 27144 - PHQ-9 Billing: Yes Source: Developed by Drs. Ab Rosario, Adriana Damon, Munir Rubio and colleagues, with an educational rebekah from [employer] Thrive Questionnaire Date Thrive assessed: 09/20/23 I am a: Patient What is your living situation today?: I have a steady place to live Within the past 12 months, did the food you bought not last and you didn't have the money to get more?: Never true Within the past 12 months, did you worry whether your food would run out before you got money to buy more?: Never true Do you have trouble paying for medicines?: No Do you have trouble getting transportation to medical appointments?: No Do you have trouble paying your heating and electricity bill?: No Do you have trouble taking care of your child, family member or friend?: No Do you have trouble with day-to-day activities such as bathing, preparing meals, shopping, managing finances, etc.?: No Are you currently unemployed and looking for a job?: No Are you interested in more education?: No Please select the resources that you would like help with: None Currently or been in a relationship where the following occur: no concerns reported THRIVE Score: 0 AUDIT C Alcohol Use Questionnaire (AUDIT-C) 1. How often do you have a drink containing alcohol?: Never 3. How often do you have six or more drinks on one occasion?: Never Total Score: 0 HORTENCIA-7 AMB Questionnaire HORTENCIA-7 Date HORTENCIA - 7 assessed: 09/20/23 Feeling nervous, anxious, or on edge: 0 = Not at all Not being able to stop or control worryin = Not at all Worrying too much about different things: 0 = Not at all Trouble relaxin = Not at all Being so restless that it is hard to sit still: 0 = Not at all Becoming easily annoyed or irritable: 0 = Not at all Feeling afraid as if something awful might happen: 0 = Not at all Total HORTENCIA-7 score (0-4 normal; 5-9 mild; 10-14 moderate; 15-21 severe): 0 Source: Developed by Drs. Ab Rosario, Adriana Damon, Munir Rubio and colleagues, with an educational rebekah from [employer] HORTENCIA-7 Assessment Billing HORTENCIA-7 Assessment Tool: HORTENCIA-7 Assessment 45991 Review of Systems Const Denies body aches, Denies chills, Denies excessive sweating, Denies fatigue, Denies fever(s) and Denies headache(s) Eyes Denies blurry vision ENT Denies dysphagia, Denies vertigo, Denies dizziness, Denies headache(s), Denies hearing loss and Denies tinnitus Card Denies chest pain, Denies chest pain with activity, Denies syncope, Denies irregular heart rhythm and Denies dyspnea Resp Denies chest congestion, Denies cough, Denies hemoptysis, Denies dyspnea and Denies wheezing GI Denies abdominal pain, Denies melena, Denies hematochezia, Denies coffee ground emesis, Denies dysphagia, Denies diarrhea, Denies nausea and Denies vomiting Denies difficulty urinating, Denies dysuria, Denies urinary frequency, Denies urinary hesitancy and Denies urinary urgency Musc Denies arthralgias, Denies limited range of motion, Denies muscle cramps and Denies muscle weakness Skin/Breast Denies rash and Denies skin ulcer Neuro Denies Abnormal speech present, Denies confusion, Denies vertigo, Denies dizziness, Denies syncope, Denies headache(s), Denies memory loss and Denies seizure-like activity Psych Denies anxiety, Denies confusion, Denies depression, Denies memory loss, Denies panic attacks and Denies paranoia Endo Denies excessive sweating, Denies fatigue, Denies flushing, Denies polydipsia and Denies polyuria Aller/Immun Denies wheezing Physical exam (Primary Care) Vital Signs: Last Vital Signs Pulse 67 09/20/23 09:54 BP 112/66 09/20/23 09:54 Pulse Ox 97 09/20/23 09:54 Oxygen Delivery Method Room Air 09/20/23 09:54 BMI result Body Mass Index 26.5 Tobacco/Smoking Status: Tobacco use Status Tobacco use date assessed 09/20/23 09/20/23 09:57 Patient Tobacco Use Status Current everyday Tobacco 09/20/23 10:52 Tobacco use type Cigarette 09/20/23 10:52 e-Cigarette/Vaping Use Never Used 09/20/23 10:52 Are you ready to quit: No Tobacco cessation counseling provided: Yes Items discussed: Nicotine replacement and QuitWorks Relapse Prevention: discussed the importance of a supportive environment, discussed negative mood or depression after quitting, weight gain after smoking is common and discussed dietary, exercise and/or lifestyle changes Number of minutes spent counselin CPT code: 63118 - 4-10 Minutes PHQ-9: PHQ-9 Score PHQ-9: Total score 0 09/20/23 10:48 Depression Screening Interpretation: Negative Thrive Assessment: Date of Thrive Assessment Date Thrive assessed 09/20/23 09/20/23 09:57 Currently or been in a relationship where the following occur: no concerns reported Const General: cooperative, comfortable, no acute distress, alert and awake; No confusion Orientation/consciousness: oriented to person, oriented to place, patient oriented x3 and No confusion HENMT Head: Yes normocephalic Ears: external ears normal and TM's normal bilaterally Face and sinus: No sinus tenderness Mouth: Normal oral and palatal mucosa present and tongue normal Teeth and gingiva: dentition normal and gingiva normal Throat: Yes posterior oropharynx normal, Yes tonsils normal and Yes uvula midline Eyes Conjunctivae: conjunctivae normal Sclerae: sclerae normal Pupils: Equal, round and reactive pupils present EOM: EOMs intact bilaterally Direct Ophthalmoscopy: No no photophobia Neck Neck: Yes no lymphadenopathy, No tender and Yes no JVD Thyroid: Thyroid normal Carotids: no bruits Chest Chest palpation & inspection: no tenderness Resp Effort & Inspection: normal respiratory effort, no audible wheezes, not labored and no stridor Auscultation: no crackles, no rales, no rhonchi and no wheezes Cardio Jugular venous distension: no JVD Rate: regular rate, not bradycardic and not tachycardic Rhythm: regular rhythm Bruits: no carotid bruits Peripheral pulses: Peripheral pulses 2+ throughout GI Inspection: Yes normal to inspection, No abdominal wall ecchymosis and No visible herniation Palpation (GI): Soft to palpation, nontender, no guarding, not rigid and No hepatosplenomegaly present Auscultation: normoactive bowel sounds General: Yes no CVA tenderness Back/Spine/Pelvis Back: no CVA tenderness and No back tenderness Cervical Spine: cervical ROM normal Thoracic/Lumbar Spine: thoracic and lumbar spine normal to inspection, straight leg raise negative bilaterally, No thoraco-lumbar ROM limited and No lumbar spinal tenderness Skin Lesions: no lesions Rashes: no rashes Wounds: no wounds Neuro General: oriented to person, oriented to place, patient oriented x3, CN's II-XI intact bilaterally and No confusion Cranial nerves: Yes Equal, round and reactive pupils present and Yes Normal accommodation reflex present Cognition (Neuro): normal cognition Speech: No Abnormal speech present Gait exam (Neuro): Normal gait present Motor exam (neuro): 5/5 motor strength present throughout Extrem Right upper extremity: full ROM; no cyanosis Left upper extremity: full ROM; no cyanosis Right lower extremity: no edema Left lower extremity: no edema Psych Appearance: grossly normal Mental Status: mental status grossly normal Affect: normal affect Attitude: cooperative Thought process: Normal thought process present Assessment and Plan Assessment & Plan (1) Annual physical exam: Code(s): Z00.00 - Encounter for general adult medical examination without abnormal findings (2) Emphysema of lung: Code(s): J43.9 - Emphysema, unspecified Qualifiers: Emphysema type: centrilobular Qualified Code(s): J43.2 - Centrilobular emphysema Plan: Patient unfortunately continues to smoke a pack a day. Has emphysema. Has not need inhaler as he has been asymptomatic surprisingly. No COPD exacerbations reported (3) Nicotine dependence, cigarettes, uncomplicated: Comment: (current smoker - onset 16yo, 1ppd x 41yrs, 40pyh) Code(s): F17.210 - Nicotine dependence, cigarettes, uncomplicated Plan: Unfortunately continues to smoke [address] chest showing 3 mm nodule that will be followed on annual basis. Again advised on quitting smoking and patient agrees though finds it difficult to do so. Offered nicotine replacement though patient declines. (4) Screening for diabetes mellitus (DM): Code(s): Z13.1 - Encounter for screening for diabetes mellitus (5) Dermatitis: Code(s): L30.9 - Dermatitis, unspecified Plan: Has very dry skin over bilateral heels. Will supply him with an steroid ointment to help lock in moisture and heel skin. Orders: Orders Prostate Specific Antigen Scr 09/20/23 Z12.5 - Encounter for screening for malignant neoplasm of prostate, Z13.1 - Encounter for screening for diabetes mellitus Complete Blood Count no Diff 09/20/23 F17.210 - Nicotine dependence, cigarettes, uncomplicated Comprehensive [place]. Panel Fast 09/20/23 Z13.1 - Encounter for screening for diabetes mellitus Referrals Thoracic Surgery Referral F17.210 - Nicotine dependence, cigarettes, uncomplicated Medications: New triamcinolone acetonide 0.1% 1 appl topical DAILY 30 days 80 grams 1RF L30.9 - Dermatitis, unspecified Patient Instructions: Goals: Try to reduce his cigarette smoking Barriers: Cigarette availability and willingness to quit smoking. Coding Level of Care Code Est Pt Prev Care 40-64y(70087) Diagnoses Annual physical exam Z00.00 Centrilobular emphysema J43.2 Emphysema type: centrilobular Nicotine dependence, cigarettes, uncomplicated F17.210 Screening for diabetes mellitus (DM) Z13.1 Dermatitis L30.9 Additional Codes HORTENCIA-7 Assessment Billing - HORTENCIA-7 Assessment Tool: HORTENCIA-7 Assessment 80449 ([id number]) Vital Signs *Quality* - CPT code: 27764 - 4-10 Minutes ([id number])
== END 2023-09-20 11:08 | disposition home or self-care (01) ==
PROVIDERS: PCP Physician Assistant; Visit Provider Physician Assistant
DX: Z00.00 Encounter for general adult medical examination without abnormal findings (principal); J43.2 Centrilobular emphysema; F17.210 Nicotine dependence, cigarettes, uncomplicated; Z13.1 Encounter for screening for diabetes mellitus; L30.9 Dermatitis, unspecified
CPT/HCPCS: 99396

== ENCOUNTER 2023-10-01 09:06 | Outpatient (REF) | payer OTHER, SELFPAY ==
[2023-10-01 10:42] LABS: Hematocrit 43.6 % (42.0-52.0); Hemoglobin 14.4 g/dl (14.0-18.0); Mean Corpuscular Hemoglobin 29.3 pg (27.0-33.0); Mean Corpuscular Volume 88.6 fL (80.0-98.0); Mean Platelet Volume 9.5 fL (9.4-12.4); Platelet Count 279 X10*3/uL (160-400); Red Blood Count 4.92 X10*6/uL (4.60-5.80); Red Cell Distribution Width 14.9 % (11.0-16.0); White Blood Count 8.8 X10*3/uL (4.8-10.8)
[2023-10-01 11:28] LABS: Alanine Aminotransferase 22 U/L (0-40); Albumin Level 3.8 g/dL (3.5-5.0); Alkaline Phosphatase 75 U/L (39-117); Anion Gap 13 (12-20); Aspartate Amino Transferase 17 U/L (5-37); Bilirubin Total 0.4 mg/dL (0.0-1.0); Blood Urea Nitrogen 16 mg/dL (9-16); Calcium 9.5 mg/dL (8.4-10.2); Carbon Dioxide 27 mmol/L (22-29); Chloride 107 mmol/L (96-108); Estimated Glomerular Filt Rate > 60; Glucose Fasting 103 mg/dL (60-99); Potassium 4.5 mmol/L (3.3-5.1); Sodium 142 mmol/L (135-145); Total Protein 7.3 g/dL (6.5-8.0)
[2023-10-01 11:39] LABS: Prostate Specific Antigen Scr 0.94 ng/mL (<0.05-4.0)
== END 2023-10-01 09:07 | disposition home or self-care (01) ==
LOC: HO.LAB 09:06
PROVIDERS: PCP Physician Assistant; Visit Provider Physician Assistant
DX: Z12.5 Encounter for screening for malignant neoplasm of prostate (principal); Z13.1 Encounter for screening for diabetes mellitus; F17.210 Nicotine dependence, cigarettes, uncomplicated
CPT/HCPCS: 36415; 80053; 84153; 85027

== ENCOUNTER 2023-11-03 15:12 | Outpatient (REF) | payer OTHER, SELFPAY ==
--- NOTE | ~2023-11-03 | CT_ITS ---
EXAMINATION: CT LOW-DOSE SCREENING CHEST WITHOUT CONTRAST CLINICAL INFORMATION: Nicotine dependence, cigarettes, uncomplicated. The patient is a current smoker with a 41 pack-year history of smoking. COMPARISON: CT chest 10/23/2022. TECHNIQUE: Multidetector volumetric CT imaging of the chest is performed on a Siemens SOMATOM Definition scanner without contrast using low dose technique. Additional 2D coronal and sagittal reformatted images and axial 3D maximum intensity projection (MIP) images are generated on the CT workstation. This CT examination was performed using dose optimization techniques as appropriate, variously including the following: *Automated exposure control. *Adjustment of mA and/or kV according to patient size (this includes techniques or standardized protocols for targeted exams where dose is matched to indication/reason for exam; i.e. extremities or head). *Use of iterative reconstruction technique. TOTAL EXAM DLP: 54 mGy-cm. CTDIvol: 1.53 mGy. FINDINGS: PULMONARY NODULES: Some small pulmonary nodules are seen and entirely unchanged when compared to the prior study. [place] images of all have been saved. The largest is in the left lower lobe measuring 3 mm (5:349 compare prior 5:348). No new, increasing-sized or suspicious nodule is seen. LUNGS: Lungs bilaterally symmetrically expanded. There is mild emphysema and bronchial thickening. No effusion or pneumothorax. Central airways patent. MEDIASTINUM: No mediastinal, hilar or axillary adenopathy or free fluid collection. CORONARY ARTERY CALCIFICATION: None visualized on this study. THYROID GLAND: Unremarkable to the extent seen. CARDIOVASCULAR STRUCTURES: Aortic and heart size normal. No pericardial effusion. CHEST WALL/AXILLA: Unremarkable. UPPER ABDOMEN: A tiny hiatal hernia is present. Included portions of the solid organs in the upper abdomen unremarkable on noncontrast imaging. OSSEOUS STRUCTURES: No suspicious focal findings. CT/CT lung screening IMPRESSION: 1. No evidence of pulmonary malignancy. 2. Mild emphysema and bronchial thickening. 3. Tiny hiatal hernia. 4. Incidental findings (s category): No incidental findings. ASSESSMENT: 1. Lung-RADS Category 2: Benign appearance or behavior of nodules. N/A. RECOMMENDATION: Continued routine annual low-dose CT lung screening in 1 year is recommended. An order for CT CHEST LOW DOSE CANCER SCREENING ([id number]) can be placed.
== END 2023-11-03 15:13 | disposition home or self-care (01) ==
LOC: HO.CT 15:12
PROVIDERS: PCP Physician Assistant; Visit Provider Physician Assistant Medical
DX: Z12.2 Encounter for screening for malignant neoplasm of respiratory organs (principal); F17.210 Nicotine dependence, cigarettes, uncomplicated
CPT/HCPCS: 71271

== ENCOUNTER 2024-08-18 04:55 | Emergency (ER) | payer OTHER, SELFPAY ==
--- NOTE | 2024-08-18 | ECG_ITS ---
Test Reason : CHEST PAIN Blood Pressure : */* mmHG Vent. Rate : 69 BPM Atrial Rate : 69 BPM P-R Int : 208 ms QRS Dur : 90 ms QT Int : 394 ms P-R-T Axes : 63 59 60 degrees QTcB Int : 422 ms Normal sinus rhythm Normal ECG When compared with ECG of 24-Jun-2021 18:58, No significant change was found Referred By: Generic ED Physician Electronically Signed By: Matthew Benitez
--- NOTE | ~2024-08-18 | XR_ITS ---
CLINICAL HISTORY: cp Chest one view Comparison: None Findings: No consolidation, venous distention, pulmonary edema, pleural effusion or pneumothorax. Normal heart size and mediastinal contour. Bones, soft tissues and upper abdomen are unremarkable. IMPRESSION: No acute cardiopulmonary process. This document has been electronically signed by: Homero Andujar MD on 08/18/2024 06:03:45
[2024-08-18 04:57] VITALS: BP 142/89; PULSE 72; RESP 16; TEMP 37; O2SAT 98; BMI 25.1
[2024-08-18 05:16] LABS: MANUAL DIFF FLAG NO
[2024-08-18 05:17] LABS: Basophils Absolute Auto 0.1 X10*3/uL (0.0-0.2); Basophils Percent Auto 0.7 % (0-2); Eosinophils Absolute Auto 0.3 X10*3/uL (0.0-0.4); Eosinophils Percent Auto 3.6 % (0-4); Hematocrit 39.9 % (42.0-52.0); Hemoglobin 13.6 g/dl (14.0-18.0); Imm Gran Abs Auto 0.04 X10*3/uL (0.00-0.03); Imm Gran Pct Auto 0.5 % (0.0-0.4); Lymphocytes Absolute Auto 3.4 X10*3/uL (1.2-4.9); Lymphocytes Percent Auto 39.5 % (20-40); Mean Corpuscular HGB Conc 34.1 g/dl (31.0-36.0); Mean Corpuscular Hemoglobin 29.3 pg (27.0-33.0); Mean Platelet Volume 9.2 fL (9.4-12.4); Monocytes Absolute Auto 0.6 X10*3/uL (0.1-1.2); Monocytes Percent Auto 6.7 % (2-11); Neutrophils Absolute Auto 4.2 x10*3/uL (2.0-8.3); Platelet Count 244 X10*3/uL (160-400); Red Blood Count 4.64 X10*6/uL (4.60-5.80); Red Cell Distribution Width 14.8 % (11.0-16.0); White Blood Count 8.6 X10*3/uL (4.8-10.8)
[2024-08-18 05:19] VITALS: PULSE 68
[2024-08-18 05:40] LABS: Alanine Aminotransferase 27 U/L (0-40); Albumin Level 3.3 g/dL (3.5-5.0); Alkaline Phosphatase 87 U/L (39-117); Anion Gap 13 (12-20); Aspartate Amino Transferase 27 U/L (5-37); Bilirubin Total 0.2 mg/dL (0.0-1.0); Blood Urea Nitrogen 22 mg/dL (9-16); Calcium 8.7 mg/dL (8.4-10.2); Carbon Dioxide 28 mmol/L (22-29); Chloride 106 mmol/L (96-108); Creatinine Clr Calc Pharmacy 86.4; Estimated Glomerular Filt Rate > 60; Glucose Random 93 mg/dL (60-115); Potassium 3.8 mmol/L (3.3-5.1); Sodium 143 mmol/L (135-145); Total Protein 7.9 g/dL (6.5-8.0); Troponin-I High Sensitivity < 2.7 ng/L (<3.5-35.0)
[2024-08-18 05:54] LABS: Influenza A PCR NEGATIVE (Negative); Influenza B PCR NEGATIVE (Negative); Resp Syncy Virus RNA Qual PCR NEGATIVE (Negative); SARS COV2 PCR INHOUSE NEGATIVE (Negative)
--- NOTE | 2024-08-18 06:58 | ED_ITS ---
HPI - Chest Pain General Chief Complaint: Chest Pain Stated Complaint: chest pain Time Seen by Provider: 08/18/24 06:58 History of Present Illness ED Provider: Ktahy DENNY narrative: The patient is a 59-year-old male. He is a pack-a-day smoker and has smoked for 40 years. He has a PCP but he takes no medications. He says about 3 days ago he started to notice a slight pain in his left lower chest wall. Last night he had some coughing which increased the amount of discomfort he had in his left lower anterior chest. At that point he decided to come to the emergency room. He says he has a litany a slight cough. He has had no fever, sweats, chills. No pain or swelling in his legs. No chest pain that is not associated with coughing. No diaphoresis. He does not feel particularly short of breath. Related Data Previous Rx's ?Medication ?Instructions ?Recorded ibuprofen 800 mg tablet 800 mg PO Q8H PRN pain 15 days #45 02/08/23 tabs triamcinolone acetonide 0.1 % 1 appl topical DAILY 30 days #80 09/20/23 topical ointment grams acetaminophen 500 mg capsule 1,000 mg (2 x 500 mg) PO Q8H PRN 08/18/24 fever or pain #14 caps ibuprofen 400 mg tablet 400 mg PO Q6H PRN pain #14 tabs 08/18/24 Allergies Allergy/AdvReac Type Severity Reaction Status Date / Time No Known Allergies Allergy Verified 08/18/24 04:57 [No Known Allergies*] Review of Systems 2 Review of Systems: Yes all other systems are reviewed and are negative [facility] Past Medical History Medical History Nicotine dependence, cigarettes, uncomplicated Hemochromatosis carrier Hx of syphilis Sciatica, right side RCT (rotator cuff tear) Surgical History History of axillary surgery History of repair of right rotator cuff History of colonoscopy History of foot surgery Family History Family History (Updated 09/20/23 @ 10:52 by Virgilio Ricks PA-C) Father Diabetes Colon cancer, Onset Age: 73 Mother Diabetes Brother Diabetes Substance use disorder Social History Social History (Updated 09/20/23 @ 10:52 by Virgilio Ricks PA-C) Housing: Apartment Alcohol intake: current Alcohol intake frequency: a few times a week Alcohol type: beer Patient Tobacco Use Status: Current everyday Tobacco user Tobacco use type: Cigarette Cigarette Packs Per Day: 1 Cigarettes Per Day: 20.0 Years Smoked: (onset 16yo, 1ppd x 41yrs, 40pyh) Smoked in Last 30 Days: Yes e-Cigarette/Vaping Use: Never Used Second Hand Smoke Exposure: Yes Use of substances other than those prescribed or required for medical reasons: No Advance Directives: No Do you have a plan to hurt others: No Plan service: No Current occupational status: unemployed and disabled Cognitive needs: No Hearing needs: No Vision needs: Yes (GLASSES) Physical Exam 2 Vital Signs: Vital Signs: Last Vital Signs Temp 98.1 F 08/18/24 08:45 Pulse 62 08/18/24 08:45 Resp 14 08/18/24 08:45 BP 124/80 08/18/24 08:45 Pulse Ox 95 08/18/24 08:45 O2 Del Method Room Air 08/18/24 08:45 BMI result Body Mass Index 25.1 Const: Other: The patient is an athletic looking 59-year-old. He is awake and alert. He does not appear in acute distress. HEENT: Other: Face is symmetrical. Mucous membranes moist. Posterior pharynx is normal. He is missing some teeth. Eyes: General: appearance normal, both eyes and all related structures C onjunctivae: conjunctivae normal Sclerae: sclerae normal Pupils: Equal, round and reactive pupils present EOM: EOMs intact bilaterally Neck: Neck: Yes normal visual inspection, Yes full ROM and Yes no JVD Chest: Chest palpation & inspection: normal inspection of the chest and normal palpation of entire chest wall Resp: Effort & Inspection: normal respiratory effort Auscultation: clear to auscultation bilaterally Cardio: Rate: regular rate Rhythm: regular rhythm Heart sounds: S1 normal heart sound present and S2 normal heart sound present GI: Other: Abdomen is soft and nontender. No masses. Skin: General skin exam: no rashes or lesions noted Neuro: Other: The patient is awake and alert with a normal mental status. Cranial nerves 2-12 are grossly intact. He moves all extremities normally and appropriately and seems grossly neurologically intact. Cranial nerves: Yes Equal, round and reactive pupils present Extrem: Other: No calf swelling or tenderness, no asymmetry, no edema. Medical Decision Making Medical Decision Making [facility] Narrative: The patient is a fit looking 59-year-old male who presents to the emergency department with left-sided chest pain that is worse when he coughs. He has an unremarkable EKG. Troponins are flat. Clinically he does not look unwell. His chest x-ray is normal. his white count and differential are normal. His chest x-ray is normal. His D-dimer is undetectable. Patient therefore does not seem to have an acute coronary syndrome, pulmonary embolism, pneumonia, or other significantly dangerous process at work. I suspect this is chest wall pain. The patient will be reassured. He is a long-time smoker and is advised to try to stop smoking. He should follow up with his PCP. He should return if worse. Lab Data 08/18/24 05:08 08/18/24 05:08 Labs: Lab Results 08/18/24 08/18/24 Range/Units 05:08 07:19 WBC 8.6 (4.8-10.8) X10*3/uL RBC 4.64 (4.60-5.80) X10*6/uL Hgb 13.6 L (14.0-18.0) g/dl Hct 39.9 L (42.0-52.0) % MCV 86.0 (80.0-98.0) fL MCH 29.3 (27.0-33.0) pg MCHC 34.1 (31.0-36.0) g/dl RDW 14.8 (11.0-16.0) % Plt Count 244 (160-400) X10*3/uL MPV 9.2 L (9.4-12.4) fL Immature Gran % (Auto) 0.5 H (0.0-0.4) % Neut % (Auto) 49.0 (45-73) % Lymph % (Auto) 39.5 (20-40) % Toombs % (Auto) 6.7 (2-11) % Eos % (Auto) 3.6 (0-4) % Baso % (Auto) 0.7 (0-2) % Lymph # (Auto) 3.4 (1.2-4.9) X10*3/uL [place]ombs # (Auto) 0.6 (0.1-1.2) X10*3/uL Eos # (Auto) 0.3 (0.0-0.4) X10*3/uL Baso # (Auto) 0.1 (0.0-0.2) X10*3/uL Abs Immat Gran (auto) 0.04 H (0.00-0.03) X10*3/uL Absolute Neuts (auto) 4.2 (2.0-8.3) x10*3/uL Absolute Nucleated RBC 0.000 (0.0-0.012) X10*3/uL Nucleated RBC % (auto) 0.0 (0.0-0.2) /100WBC D-Dimer High Sensitivty < 150 NG/ML Sodium 143 (135-145) mmol/L Potassium 3.8 (3.3-5.1) mmol/L Chloride 106 (96-108) mmol/L Carbon Dioxide 28 (22-29) mmol/L Anion Gap 13 (12-20) BUN 22 H (9-16) mg/dL Creatinine 0.95 (0.5-1.4) mg/dL Estim Creat Clear Calc 86.4 Estimated GFR > 60 Random Glucose 93 (60-115) mg/dL Calcium 8.7 D (8.4-10.2) mg/dL Total Bilirubin 0.2 (0.0-1.0) mg/dL AST 27 (5-37) U/L ALT 27 (0-40) U/L Alkaline Phosphatase 87 (39-117) U/L Troponin I High Sens < 2.7 < 2.7 (<3.5-35.0) ng/L Total Protein 7.9 (6.5-8.0) g/dL Albumin 3.3 L (3.5-5.0) g/dL Influenza Type A (PCR) NEGATIVE (Negative) Influenza Type B (PCR) NEGATIVE (Negative) RSV RNA Qual (PCR) NEGATIVE (Negative) SARS-CoV-2 RNA (RT-PCR) NEGATIVE (Negative) Independent Interpretation I performed an independent interpretation of an: EKG Interpretation: EKG at 0502 shows normal sinus rhythm at 69 beats per minute and is a normal EKG. No change from previous. Discharge Plan Discharge Clinical Impression: Left-sided chest wall pain Patient Disposition: Home, Self-Care Additional Instructions: Your testing in the emergency room today seems very reassuring. There is no sign of a heart attack. There was no sign of a blood clot in your lungs. There was no sign of a pneumonia or other significant infection. I suspect that this is probably a musculoskeletal pain. You may use ibuprofen and acetaminophen as needed for pain. Please contact your regular doctor's office for a follow up appointment in the next couple of weeks. Please also try to do your best to stop smoking. Return to the emergency room if you feel significantly worse. Prescriptions: New acetaminophen 500 mg capsule 1,000 mg PO Q8H PRN (Reason: fever or pain) Qty: 14 0RF ibuprofen 400 mg tablet 400 mg PO Q6H PRN (Reason: pain) Qty: 14 0RF No Action ibuprofen 800 mg tablet 800 mg PO Q8H PRN (Reason: pain) 15 Days Qty: 45 0RF triamcinolone acetonide 0.1 % ointment 1 appl topical DAILY 30 Days Qty: 80 1RF Referrals: Virgilio Ricks PA-C [Primary Care Provider] - (Left-sided pain with coughing, smoking) Interventions: ED Discharge Assessment Last Done: 08/18/24 08:45 Discharge Date/Time: 08/18/24 08:49 Print Language: Andorran
--- NOTE | 2024-08-18 07:20 | PC.NURSE ---
repeat labs obtained/sent to lab.
[2024-08-18 07:48] LABS: Troponin-I High Sensitivity < 2.7 ng/L (<3.5-35.0)
[2024-08-18 08:09] LABS: D Dimer High Sensitivity < 150 NG/ML
[2024-08-18 08:45] VITALS: BP 124/80; PULSE 62; RESP 14; TEMP 36.7; O2SAT 95
== END 2024-08-18 08:49 | disposition home or self-care (01) ==
PROVIDERS: Emergency Provider Emergency Medicine; PCP Physician Assistant
DX: R07.89 Other chest pain (principal); R05.9 Cough, unspecified; F17.210 Nicotine dependence, cigarettes, uncomplicated; Z03.818 Encounter for observation for suspected exposure to other biological agents ruled out
CPT/HCPCS: 0241U; 36415; 71045; 80053; 84484; 85025; 85379; 93005; 99283; 99285

== ENCOUNTER → 2024-08-18 05:02 | Outpatient (BNV) | payer OTHER, SELFPAY | PROVIDERS: Emergency Provider Emergency Medicine; PCP Physician Assistant; Visit Provider Internal Medicine Cardiovascular Disease | DX: R07.9 Chest pain, unspecified (principal) | CPT/HCPCS: 93010 ==

== ENCOUNTER → 2024-08-18 05:10 | Outpatient (BNV) | payer OTHER, SELFPAY | PROVIDERS: Emergency Provider Emergency Medicine; PCP Physician Assistant; Visit Provider Radiology Diagnostic Radiology | DX: R07.9 Chest pain, unspecified (principal) | CPT/HCPCS: 71045 ==

== ENCOUNTER 2024-09-11 21:22 | Emergency (ER) | payer OTHER, SELFPAY ==
[2024-09-11 21:40] VITALS: BP 134/85; PULSE 88; RESP 14; TEMP 37.1; O2SAT 98; BMI 25.5
== END 2024-09-11 22:50 | disposition left against medical advice (07) ==
PROVIDERS: Emergency Provider Emergency Medicine; PCP Physician Assistant
DX: R07.89 Other chest pain (principal)
CPT/HCPCS: 99281

== ENCOUNTER 2024-09-13 00:39 | Emergency (ER) | payer OTHER, SELFPAY ==
--- NOTE | ~2024-09-13 | XR_ITS ---
CLINICAL HISTORY: pain Exam: AP and oblique views of the left ribs and frontal view of the chest. Comparison: Chest x-ray August 18, 2024. Findings: No displaced rib fractures are identified. No pneumothorax or pleural effusion. No focal areas of consolidation. Impression: No rib fracture. This document has been electronically signed by: Blair Ambrocio MD on 09/13/2024 01:45:21
[2024-09-13 00:42] VITALS: BP 135/74; PULSE 80; RESP 16; TEMP 36.5; O2SAT 97; BMI 25.7
--- NOTE | 2024-09-13 00:55 | PC.NURSE ---
Pt ambulatory to ED27 for treatment, assumed care of pt at this time. A&Ox3 skin pwd respirations even unlabored. Endorsing left rib pain after hearing a snap while cutting wood Wednesday afternoon. Pain in left rib area since. Denies SOB, denies accompanying symptoms. Awaiting primary provider eval, aware of plan of care.
--- NOTE | 2024-09-13 02:44 | ED.GENADULT ---
HPI - General Adult General Chief complaint: Extremity Problem Stated complaint: left sided pain Time Seen by Provider: 09/13/24 02:00 Source: patient Limitations: no limitations History of Present Illness ED Provider: Karina Cross PA-C HPI narrative: 59-year-old male with a history of COPD/emphysema, ongoing tobacco abuse who presents with left lateral chest wall pain. Patient states he felt a pop in the left lateral upper rib cage. Pain worse with palpation of chest wall. Denies trauma, new heavy lifting, exercise repetitive activities. Related Data Previous Rx's ?Medication ?Instructions ?Recorded ibuprofen 800 mg tablet 800 mg PO Q8H PRN pain 15 days #45 02/08/23 tabs triamcinolone acetonide 0.1 % 1 appl topical DAILY 30 days #80 09/20/23 topical ointment grams acetaminophen 500 mg capsule 1,000 mg (2 x 500 mg) PO Q8H PRN 08/18/24 fever or pain #14 caps ibuprofen 400 mg tablet 400 mg PO Q6H PRN pain #14 tabs 08/18/24 methocarbamol 750 mg tablet 750 mg PO Q8H PRN pain, moderate 09/13/24 #10 tabs Allergies Allergy/AdvReac Type Severity Reaction Status Date / Time No Known Allergies Allergy Verified 09/13/24 00:44 [No Known Allergies*] Review of Systems Review of Systems: Yes all other systems are reviewed and are negative Constitutional: Constitutional: Denies fatigue and Denies fever(s) Cardiovascular: Cardiovascular: Reports chest pain and Denies dyspnea Respiratory: Respiratory: Denies cough and Denies dyspnea Endocrine: Endocrine: Denies fatigue PMFSH Past Medical History Attestation statement: The following information was validated with the patient. Medical History Nicotine dependence, cigarettes, uncomplicated Hemochromatosis carrier Hx of syphilis Sciatica, right side RCT (rotator cuff tear) Surgical History History of axillary surgery History of repair of right rotator cuff History of colonoscopy History of foot surgery Family History Family History (Updated 09/20/23 @ 10:52 by Virgilio Ricks PA-C) Father Diabetes Colon cancer, Onset Age: 73 Mother Diabetes Brother Diabetes Substance use disorder Social History Social History (Updated 09/20/23 @ 10:52 by Virgilio Ricks PA-C) Housing: Apartment Alcohol intake: current Alcohol intake frequency: a few times a week Alcohol type: beer Patient Tobacco Use Status: Current everyday Tobacco user Tobacco use type: Cigarette Cigarette Packs Per Day: 1 Cigarettes Per Day: 20.0 Years Smoked: (onset 16yo, 1ppd x 41yrs, 40pyh) Smoked in Last 30 Days: Yes e-Cigarette/Vaping Use: Never Used Second Hand Smoke Exposure: Yes Use of substances other than those prescribed or required for medical reasons: No Advance Directives: No Advance Directives Information Provided: Yes Do you have a plan to hurt others: No Plan service: No Current occupational status: unemployed and disabled Cognitive needs: No Hearing needs: No Vision needs: Yes (GLASSES) Physical Exam ED Vital Signs: Vital Signs - 24 hr 09/13/24 00:42 Temperature 97.7 F Pulse Rate 80 Respiratory Rate 16 Blood Pressure 135/74 Pulse Oximetry 97 Oxygen Delivery Method Room Air BMI result Body Mass Index 25.7 Const Other: Alert Orientation/consciousness: patient oriented x3 Chest Other: Focal chest wall discomfort with palpation of upper left lateral chest Resp Effort & Inspection: normal respiratory effort Cardio Other: Normal peripheral perfusion Skin Other: Warm dry no rash Neuro General: patient oriented x3, gait normal, no focal motor deficits and CN's II-XI intact bilaterally Psych Other: Cooperative Medical Decision Making Medical Decision Making MDM Narrative: 59-year-old male with a history of COPD/emphysema, ongoing tobacco abuse who presents with left lateral chest wall pain. Patient states he felt a pop in the left lateral upper rib cage. Pain worse with palpation of chest wall. Denies trauma, new heavy lifting, exercise repetitive activities. Problem: COPD, tobacco abuse History: Per patient I have considered the following differential diagnoses: Chest wall strain, rib fracture, costochondritis, Plan: Chest x-ray ordered from triage it was unremarkable. I am treating him as chest wall strain, we will send with incentive spirometry and a muscle relaxant. I have independently reviewed the following tests: Chest x-ray:Findings: No displaced rib fractures are identified. No pneumothorax or pleural effusion. No focal areas of consolidation. Impression: No rib fracture. Discharge Plan Discharge Clinical Impression: Chest wall muscle strain Patient Disposition: Home, Self-Care Instructions: How to Use an Incentive Spirometer (ED), Chest Wall Pain (ED) Additional Instructions: You are being treated for chest wall pain. See home care instructions. The chest x-ray was negative you do not have a rib fracture. You have Tylenol and ibuprofen at home, you can use both of these medications to manage your discomfort. In addition, I am sending you with a muscle relaxant, this is called methocarbamol, take it as needed for further pain. It will cause drowsiness not drive or operate machinery while taking the medication. Use the incentive spirometry as directed. Follow up with your primary care provider as needed. Prescriptions: New methocarbamol 750 mg tablet 750 mg PO Q8H PRN (Reason: pain, moderate) Qty: 10 0RF No Action acetaminophen 500 mg capsule 1,000 mg PO Q8H PRN (Reason: fever or pain) Qty: 14 0RF ibuprofen 400 mg tablet 400 mg PO Q6H PRN (Reason: pain) Qty: 14 0RF ibuprofen 800 mg tablet 800 mg PO Q8H PRN (Reason: pain) 15 Days Qty: 45 0RF triamcinolone acetonide 0.1 % ointment 1 appl topical DAILY 30 Days Qty: 80 1RF Print Language: Serbian
[2024-09-13 03:04] VITALS: BP 131/78; PULSE 72; RESP 18; O2SAT 96
[2024-09-13 03:10] VITALS: BP 131/78; PULSE 72; RESP 18; TEMP 36.5; O2SAT 96
== END 2024-09-13 03:11 | disposition home or self-care (01) ==
PROVIDERS: Emergency Provider Emergency Medicine; PCP Physician Assistant
DX: S29.011A Strain of muscle and tendon of front wall of thorax, initial encounter (principal); X58.XXXA Exposure to other specified factors, initial encounter; J44.9 Chronic obstructive pulmonary disease, unspecified; F17.210 Nicotine dependence, cigarettes, uncomplicated; Z79.899 Other long term (current) drug therapy; Y93.9 Activity, unspecified; Y92.9 Unspecified place or not applicable; Y99.9 Unspecified external cause status
CPT/HCPCS: 71101; 94010; 99283; 99284

== ENCOUNTER → 2024-09-13 00:55 | Outpatient (BNV) | payer OTHER, SELFPAY | PROVIDERS: PCP Physician Assistant; Visit Provider Radiology Diagnostic Radiology | DX: R07.81 Pleurodynia (principal) | CPT/HCPCS: 71101 ==

== ENCOUNTER 2024-09-25 10:10 | Outpatient (AMB) | payer OTHER, SELFPAY ==
--- NOTE | 2024-09-25 10:17 | A.OFFPC_ITS ---
Vital Signs 09/25/24 10:18 Height 5 ft 11 in Weight 180 lb BMI 25.1 BP 122/70 Blood Pressure Location Lt brachial Position Sitting Pulse 72 Pulse Source Pulse Oximeter Pulse Oximetry (%) 97 Oxygen Delivery Method Room Air Intake Visit Reasons: physical exam Intake Note: Patient here for a physical exam Spares Scheduler Required: No Accompanied by: Self / Same As Patient Allergies No Known Allergies [No Known Allergies*] Allergy (Verified 09/25/24 10:36) Medication List - Last Reconciled 09/25/24 by Virgilio Ricks PA-C acetaminophen 1,000 mg (2 x 500 mg) PO Q8H PRN ibuprofen 400 mg PO Q6H PRN ibuprofen 800 mg PO Q8H PRN 15 days methocarbamol 750 mg PO Q8H PRN triamcinolone acetonide 0.1% 1 appl topical DAILY 30 days Tobacco use date assessed: 09/25/24 Dental Screening Dental Screen Date: 09/25/24 Did you have a dental visit in the last 12 months?: No Did you have a dental problem in the last 6 months where you did not have access to dental care?: No Was dental information given to patient?: Patient has dentist HPI physical exam HPI Details Patient is a 59-year-old male here today for routine annual physical? Patient has a past medical history significant for tobacco use disorder, tubular adenoma of the colon, .. Concern--> He has faced episodes of dizziness and visual disturbances such as lightheadedness and short-duration vision loss for the past year. Typically, these symptoms appear suddenly and tend to resolve within seconds to a minute without frequent recurrence. He's concerned about potential dehydration, given his tendency to avoid drinking water. Previous CT imaging three years ago noted spinal arthritis and emphysema but no critical arterial or intracranial issues. Additionally, the patient has ongoing ear discomfort potentially related to pressure sensitivity. Emphysema/ tobacco dependency: Has seen lung cancer screening program and gotten CT lungs with did show stable nodule repeat CT 1 year. Patient does understand he needs to quit smoking and declines my offers on starting nicotine replacement therapy.? He will try to wean cigarettes on his own. .. Colon cancer screening : Colonoscopy done in 2023, tubular adenoma polyp found, repeat 5 years Vaccines: Up-to-date with pneumonia, tetanus and COVID vaccine. Considering shingles vaccine [facility] Medical History Nicotine dependence, cigarettes, uncomplicated Hemochromatosis carrier Hx of syphilis Sciatica, right side RCT (rotator cuff tear) Surgical History History of axillary surgery History of repair of right rotator cuff History of colonoscopy History of foot surgery Family History Father Diabetes Colon cancer, Onset Age: 73 Mother Diabetes Brother Diabetes Substance use disorder Social History Housing: Apartment Alcohol intake: current Alcohol intake frequency: a few times a week Alcohol type: beer Patient Tobacco Use Status: Current everyday Tobacco user Tobacco use type: Cigarette Cigarette Packs Per Day: 1 Cigarettes Per Day: 20.0 Years Smoked: (onset 16yo, 1ppd x 41yrs, 40pyh) e-Cigarette/Vaping Use: Never Used Second Hand Smoke Exposure: Yes service: No Current occupational status: unemployed and disabled Cognitive needs: No Hearing needs: No Vision needs: Yes (GLASSES) Questionnaire PHQ-9 Over the last 2 weeks, how often have you been bothered by any of the following problems? 1. Little interest or pleasure in doing things: not at all 2. Feeling down, depressed, or hopeless: not at all 3. Trouble falling or staying asleep, or sleeping too much: several days 4. Feeling tired or having little energy: several days 5. Poor appetite or overeating: not at all 6. Feeling bad about yourself - or that you are a failure or have let yourself or your family down: not at all 7. Trouble concentrating on things, such as reading the newspaper or watching television: not at all 8. Moving or speaking so slowly that other people could have noticed. Or the opposite - being so fidgety or restless that you have been moving around a lot more than usual: not at all 9. Thoughts that you would be better off or of hurting yourself in some way: not at all Total score: 2 Depression Screening Interpretation: Positive Depression Screening Follow-up: Existing condition Depression Screening Done: Yes 32700 - PHQ-9 Billing: Yes Source: Developed by Drs. Ab Rosario, Adriana Damon, Munir Rubio and colleagues, with an educational rebekah from [employer] (formerly [employer]). Thrive Questionnaire Date Thrive assessed: 09/25/24 I am a: Patient What is your living situation today?: I have a steady place to live Within the past 12 months, did the food you bought not last and you didn't have the money to get more?: Often true Within the past 12 months, did you worry whether your food would run out before you got money to buy more?: Sometimes True Do you have trouble paying for medicines?: Yes Do you have trouble getting transportation to medical appointments?: No Do you have trouble paying your heating and electricity bill?: Yes Do you have trouble taking care of your child, family member or friend?: Yes Do you have trouble with day-to-day activities such as bathing, preparing meals, shopping, managing finances, etc.?: Yes Are you currently unemployed and looking for a job?: No Are you interested in more education?: No Please select the resources that you would like help with: None Currently or been in a relationship where the following occur: I choose not to answer THRIVE Score: 3 AUDIT C Alcohol Use Questionnaire (AUDIT-C) 1. How often do you have a drink containing alcohol?: Never Total Score: 0 HORTENCIA-7 AMB Questionnaire HORTENCIA-7 Date HORTENCIA - 7 assessed: 09/25/24 Feeling nervous, anxious, or on edge: 0 = Not at all Not being able to stop or control worryin = Not at all Worrying too much about different things: 0 = Not at all Trouble relaxin = Not at all Being so restless that it is hard to sit still: 0 = Not at all Becoming easily annoyed or irritable: 0 = Not at all Feeling afraid as if something awful might happen: 0 = Not at all Total HORTENCIA-7 score (0-4 normal; 5-9 mild; 10-14 moderate; 15-21 severe): 0 Source: Developed by Drs. Ab Rosario, Munir Villa and colleagues, with an educational rebekah from [employer] (formerly [employer]). HORTENCIA-7 Assessment Billing HORTENCIA-7 Assessment Tool: HORTENCIA-7 Assessment 14107 Review of Systems Const Denies body aches, Denies chills, Denies excessive sweating, Denies fatigue, Denies fever(s) and Denies headache(s) Eyes Denies blurry vision ENT Denies dysphagia, Denies vertigo, Reports dizziness, Denies headache(s), Denies hearing loss and Denies tinnitus Card Denies chest pain, Denies chest pain with activity, Denies syncope, Denies irregular heart rhythm and Denies dyspnea Resp Denies chest congestion, Denies cough, Denies hemoptysis, Denies dyspnea and Denies wheezing GI Denies abdominal pain, Denies melena, Denies hematochezia, Denies coffee ground emesis, Denies dysphagia, Denies diarrhea, Denies nausea and Denies vomiting Denies difficulty urinating, Denies dysuria, Denies urinary frequency, Denies urinary hesitancy and Denies urinary urgency Musc Denies arthralgias, Denies limited range of motion, Denies muscle cramps and Denies muscle weakness Skin/Breast Denies rash and Denies skin ulcer Neuro Denies Abnormal speech present, Denies confusion, Denies vertigo, Reports dizziness, Denies syncope, Denies headache(s), Denies memory loss and Denies seizure-like activity Psych Denies anxiety, Denies confusion, Denies depression, Denies memory loss, Denies panic attacks and Denies paranoia Endo Denies excessive sweating, Denies fatigue, Denies flushing, Denies polydipsia and Denies polyuria Aller/Immun Denies wheezing Physical exam (Primary Care) Vital Signs: Last Vital Signs Pulse 72 09/25/24 10:18 BP 122/70 09/25/24 10:18 Pulse Ox 97 09/25/24 10:18 Oxygen Delivery Method Room Air 09/25/24 10:18 BMI result Body Mass Index 25.1 Tobacco/Smoking Status: Tobacco use Status Tobacco use date assessed 09/25/24 09/25/24 10:23 Patient Tobacco Use Status Current everyday Tobacco 09/25/24 10:23 Tobacco use type Cigarette 09/25/24 10:23 e-Cigarette/Vaping Use Never Used 09/25/24 10:23 Are you ready to quit: No Tobacco cessation counseling provided: Yes Items discussed: Nicotine replacement Relapse Prevention: discussed the importance of a supportive environment, discussed negative mood or depression after quitting, weight gain after smoking is common and discussed dietary, exercise and/or lifestyle changes Number of minutes spent counselin CPT code: 48826 - 4-10 Minutes PHQ-9: PHQ-9 Score PHQ-9: Total score 2 09/25/24 10:56 Depression Screening Interpretation: Positive Depression Screening Follow-up: Existing condition Thrive Assessment: Date of Thrive Assessment Date Thrive assessed 09/25/24 09/25/24 10:23 Currently or been in a relationship where the following occur: I choose not to answer Const General: cooperative, comfortable, no acute distress, alert and awake; No confusion Orientation/consciousness: oriented to person, oriented to place, patient oriented x3 and No confusion HENMT Head: Yes normocephalic Ears: external ears normal and TM's normal bilaterally Face and sinus: No sinus tenderness Mouth: Normal oral and palatal mucosa present and tongue normal Teeth and gingiva: dentition normal and gingiva normal Throat: Yes posterior oropharynx normal, Yes tonsils normal and Yes uvula midline Eyes Conjunctivae: conjunctivae normal Sclerae: sclerae normal Pupils: Equal, round and reactive pupils present EOM: EOMs intact bilaterally Direct Ophthalmoscopy: No no photophobia Neck Neck: Yes no lymphadenopathy, No tender and Yes no JVD Thyroid: Thyroid normal Carotids: no bruits Chest Chest palpation & inspection: no tenderness Resp Effort & Inspection: normal respiratory effort, no audible wheezes, not labored and no stridor Auscultation: no crackles, no rales, no rhonchi and no wheezes Cardio Jugular venous distension: no JVD Rate: regular rate, not bradycardic and not tachycardic Rhythm: regular rhythm Bruits: no carotid bruits Peripheral pulses: Peripheral pulses 2+ throughout GI Inspection: Yes normal to inspection, No abdominal wall ecchymosis and No visible herniation Palpation (GI): Soft to palpation, nontender, no guarding, not rigid and No hepatosplenomegaly present Auscultation: normoactive bowel sounds General: Yes no CVA tenderness Back/Spine/Pelvis Back: no CVA tenderness and No back tenderness Cervical Spine: cervical ROM normal Thoracic/Lumbar Spine: thoracic and lumbar spine normal to inspection, straight leg raise negative bilaterally, No thoraco-lumbar ROM limited and No lumbar spinal tenderness Skin Lesions: no lesions Rashes: no rashes Wounds: no wounds Neuro General: oriented to person, oriented to place, patient oriented x3, CN's II-XI intact bilaterally and No confusion Cranial nerves: Yes Equal, round and reactive pupils present and Yes Normal accommodation reflex present Cognition (Neuro): normal cognition Speech: No Abnormal speech present Gait exam (Neuro): Normal gait present Motor exam (neuro): 5/5 motor strength present throughout Extrem Right upper extremity: full ROM; no cyanosis Left upper extremity: full ROM; no cyanosis Right lower extremity: no edema Left lower extremity: no edema Psych Appearance: grossly normal Mental Status: mental status grossly normal Affect: normal affect Attitude: cooperative Thought process: Normal thought process present Coding Level of Care Code Est Pt Prev Care 40-64y(59388) Diagnoses Annual physical exam Z00.00 Benign paroxysmal positional vertigo due to bilateral vestibular disorder H81.13 Laterality: bilateral Nicotine dependence, cigarettes, uncomplicated F17.210 Additional Codes HORTENCIA-7 Assessment Billing - HORTENCIA-7 Assessment Tool: HORTENCIA-7 Assessment 85053 ([id number]) PHQ-9 - 21665 - PHQ-9 Billing: Yes ([id number]) Vital Signs *Quality* - CPT code: 13710 - 4-10 Minutes ([id number]) Assessment & Plan Assessment & Plan (1) Annual physical exam: Code(s): Z00.00 - Encounter for general adult medical examination without abnormal findings Category: Medical Plan: As per HPI (2) BPPV (benign paroxysmal positional vertigo): Code(s): H81.10 - Benign paroxysmal vertigo, unspecified ear Category: Medical Qualifiers: Laterality: bilateral Qualified Code(s): H81.13 - Benign paroxysmal vertigo, bilateral Plan: Dizziness associated with suspected vestibular dysfunction or dehydration addre ssed. Increase in water intake recommended. Vestibular therapy proposed to manage driving-related dizziness, with limited efficacy rescue medication available. (3) Nicotine dependence, cigarettes, uncomplicated: Comment: (current smoker - onset 16yo, 1ppd x 41yrs, 40pyh) Code(s): F17.210 - Nicotine dependence, cigarettes, uncomplicated Category: Medical Plan: Patient does understand he needs to quit smoking. Has tried nicotine patches in the past though have not been effective. He is not interested in any medication. Orders: Orders Prostate Specific Antigen Scr Today Z12.5 - Encounter for screening for malignant neoplasm of prostate Comprehensive [place]. Panel Fast Today Z13.1 - Encounter for screening for diabetes mellitus Complete Blood Count no Diff Today Z13.1 - Encounter for screening for diabetes mellitus PT Evaluation and Treatment Today H81.13 - Benign paroxysmal vertigo, bilateral
[2024-09-25 10:18] VITALS: BP 122/70; PULSE 72; O2SAT 97; BMI 25.1
== END 2024-09-25 10:55 | disposition home or self-care (01) ==
LOC: HO.HMCH 10:11
PROVIDERS: PCP Physician Assistant; Visit Provider Physician Assistant
DX: Z00.00 Encounter for general adult medical examination without abnormal findings (principal); H81.13 Benign paroxysmal vertigo, bilateral; F17.210 Nicotine dependence, cigarettes, uncomplicated

== ENCOUNTER → 2024-09-25 10:10 | Outpatient (BNVA) | payer OTHER, SELFPAY | PROVIDERS: PCP Physician Assistant; Visit Provider Physician Assistant | DX: Z00.00 Encounter for general adult medical examination without abnormal findings (principal); H81.13 Benign paroxysmal vertigo, bilateral; F17.210 Nicotine dependence, cigarettes, uncomplicated | CPT/HCPCS: 96127; 99396 ==

== ENCOUNTER 2024-11-07 16:15 | Outpatient (REF) | payer OTHER, SELFPAY ==
--- NOTE | ~2024-11-07 | CT_ITS ---
CLINICAL HISTORY: F17.210 - Nicotine dependence, cigarettes, uncomplicated Examination CT lung cancer screening History Screening examination performed for pulmonary nodules Technique Axial CT images of the chest using low-dose technique. Effective radiation dose total: 66.8 mGy-cm, CTDIvol 1.5 mGy. Referring provider counseled the patient on shared decision-making for LDCT screening. Additional counseling was provided on smoking cessation. Comparison: CT/OR/SR - CT LUNG SCREENING - 11/03/23 15:20 EDT Findings: Lungs: Stable solid pulmonary nodules measure up to 5 mm (series 4 image 50, right upper lobe). Calcified granuloma. Mild paraseptal and centrilobular emphysema. Mild linear scarring versus atelectasis at the lung bases Coronary artery calcifications: None Other: None Limited upper abdomen: Unremarkable Impression: LungRADS 2 - Benign Appearance: Continue annual screening with low dose Chest CT in 12 months. ##L2# Category 1: Normal; continue annual screening Category 2: Benign appearance or behavior, continue annual screening Category 3: Probably benign, [address] recommended Category 4A: Suspicious, [address] recommended; may consider PET/CT Category 4B: Suspicious, Additional diagnostics and/or tissue sampling recommended Category 4X: Suspicious, Additional diagnostics and/or tissue sampling recommended Category 0: Recalls (incomplete screen due to Incomplete coverage, Noise, Respiratory motion, Expiration, Obscured by acute abnormality) This document has been electronically signed by: Olga Lidia Thorne MD on 11/08/2024 16:27:23
== END 2024-11-07 16:16 | disposition home or self-care (01) ==
LOC: HO.CT 16:15
PROVIDERS: PCP Physician Assistant; Visit Provider Physician Assistant Medical
DX: Z12.2 Encounter for screening for malignant neoplasm of respiratory organs (principal); F17.210 Nicotine dependence, cigarettes, uncomplicated
CPT/HCPCS: 71271

== ENCOUNTER → 2024-11-07 16:19 | Outpatient (BNV) | payer OTHER, SELFPAY | PROVIDERS: PCP Physician Assistant; Visit Provider Radiology Diagnostic Radiology | DX: F17.210 Nicotine dependence, cigarettes, uncomplicated (principal) | CPT/HCPCS: 71271 ==

== ENCOUNTER 2024-12-22 08:42 | Outpatient (RCR) | payer OTHER, SELFPAY ==
[2024-12-22 09:03] VITALS: BP 140/86; PULSE 72
--- NOTE | 2024-12-22 09:31 | MHC.PT.EP ---
[facility] [place] Office [place] Office [place] Office [address] Do Higgins [address] [phone] F: [phone] F: [phone] F: [phone] F: [phone] Physical Therapy Plan of Care Date of Evaluation: Date of Surgery: Diagnosis: VERTIGO Assessment: Pt ARRIVES WITH DIAGNOSIS OF VERTIGO. UPON EXAM HE DEMONSTRATES NEGATIVE VESTIBULAR AND OCCULOMOTOR TESTING, NORMAL GAIT AND BALANCE. BLOOD PRESSURE IS WNL. SYMPTOMS HAVE NOT OCCURRED IN THE LAST MONTH. NOT A CANDIDATE FOR VESTIBULAR REHAB AT THIS TIME. Frequency and Duration: The patient will be seen 1 VISIT Short Term Goals: R/O BPPV, R/O VESTIBULAR HYPOFUNCTION Treatment Plan: NO SKILLED PT INDICATED Electronically signed by: ELPIDIO NASCIMENTO PT DPT Please sign and return to therapist. Thank you for your referral.
== END 2024-12-22 09:32 | disposition home or self-care (01) ==
LOC: HO.PT 08:42
PROVIDERS: PCP Physician Assistant; Visit Provider Physician Assistant
DX: H81.13 Benign paroxysmal vertigo, bilateral (principal)
CPT/HCPCS: 97161